=== PATIENT | female | born 1965 | race Two or more races ===

== ENCOUNTER 2016-07-03 18:33 | Observation (INO) | payer BC ==
[2016-07-03] MEDS ORDERED: Aspirin 81 MG Tab.Chew PO ONE (18:42)
[2016-07-03] MEDS ORDERED: Sodium Chloride 0.9% 10 ML Syringe FLUSH PRN (18:45)
[2016-07-03 19:07] LABS: CHLORIDE,CL 103 mmol/L (98-107); SODIUM,NA 138 mmol/L (136-145)
[2016-07-03] MEDS ORDERED: Nitroglycerin 0.4 MG Tab.SL SL ONE (19:10)
--- NOTE | 2016-07-03 19:11 | EDM.PDOC ---
ED HISTORY OF PRESENT ILLNESS - General Chief Complaint: Chest Pain Stated Complaint: cp Time Seen by Provider: 07/03/16 18:45 Source of Information: Reports: Patient History Limitations: Reports: No limitations - History of Present Illness INITIAL COMMENTS - FREE TEXT/NARRATIVE: Had chest pain yesterday for a few hours. Was severe at that time. Today it has been back, not quite as bad. Feels SOB, Not painful to breath. No Diaphoresis. Has some light-headedness. Symptom Onset Date: 07/02/16 Severity: severe (moderate at this time) Location, General: Reports: chest Quality: Reports: Pressure Improves with: Reports: Rest (specifically laying flat) Worsens with: Reports: Movement (specifically sitting up) Context, General: Reports: Other (normal ADL) Associated Symptoms (General): Reports: no other symptoms, chest pain, shortness of breath. Denies: cough, diaphoresis, fever/chills, malaise, nausea/ vomiting - Related Data Allergies/ADRs: Allergies Allergy/AdvReac Type Severity Reaction Status Date / Time No Known Allergies Allergy Verified 07/03/16 18:34 Home Meds: Home Meds . [No Known Home Meds] 07/03/16 [History] Social & Family History - Tobacco Use Smoking Status *Q: Current Every Day Smoker Years of Tobacco use: 30 Packs/Tins Daily: 0.5 ED ROS GENERAL - Review of Systems Review Of Systems: See Below Constitutional: Reports: no symptoms HEENT: Reports: No symptoms Respiratory: Reports: No Symptoms, Shortness of Breath (mild - feels like cant get a deep breath) Cardiovascular: Reports: Chest pain (06/17 currently) Endocrine: Reports: no symptoms GI/Abdominal: Reports: No symptoms : Reports: no symptoms Musculoskeletal: Reports: no symptoms Skin: Reports: no symptoms Neurological: Reports: No Symptoms Psychiatric: Reports: No symptoms Hematologic/Lymphatic: Reports: no symptoms Immunologic: Reports: no symptoms ED EXAM, GENERAL - Physical Exam Exam: See Below Exam Limited By: No limitations General Appearance: alert, WD/WN, no apparent distress Eye Exam: bilateral eye: EOMI, PERRL Ears: normal external exam, hearing grossly normal Nose: normal inspection, normal mucosa Throat/Mouth: Normal inspection, Normal oropharynx, Normal voice, No airway compromise Head: atraumatic, normocephalic Neck: normal inspection, supple, non-tender, full range of motion Respiratory/Chest: no respiratory distress, lungs clear, normal breath sounds, no accessory muscle use Cardiovascular: regular rate, rhythm, no edema, no murmur GI/Abdominal: soft, non tender, no abnormal bruit Extremities: normal inspection, normal range of motion, non-tender, normal capillary refill Neurological: alert, oriented, CN II-XII intact, normal cognition, no motor/ sensory deficits Psychiatric: normal affect, normal mood Skin Exam: Warm, Dry, Intact, Normal color, No rash Lymphatic: no adenopathy EKG INTERPRETATION EKG Date: 07/03/16 Rhythm: NSR [place]: normal P-wave: present QRS: normal ST-T: normal QT: normal Course - Vital Signs Last Recorded V/S: Last Vital Signs Temp 36.6 C 07/03/16 18:34 Pulse 64 07/03/16 21:27 Resp 15 07/03/16 21:24 BP 162/91 H 07/03/16 21:27 Pulse Ox 99 07/03/16 21:27 - Orders/Labs/Meds Orders: Active Orders 24 hr Category Date Time Status EKG Documentation Completion [RC] ASDIRECTED Care 07/03/16 18:42 Active EKG Documentation Completion [RC] ASDIRECTED Care 07/03/16 22:30 Active Oxygen Therapy Adult [Oxygen Therapy, ED] [RC] Care 07/03/16 18:44 Active ASDIRECTED Chest 1V Frontal [CR] Stat Exams 07/03/16 18:44 Taken Sodium Chloride 0.9% [Saline Flush] Med 07/03/16 18:45 Active 10 ml FLUSH ASDIRECTED PRN Saline Lock Insert [OM.PC] Routine Oth 07/03/16 18:45 Ordered Medication Orders Sodium Chloride (Saline Flush) 10 ml FLUSH ASDIRECTED PRN PRN Reason: Keep Vein Open Labs: Laboratory Tests 07/03/16 07/03/16 07/03/16 Range/Units 18:35 18:35 18:35 WBC 10.8 H (4.0-10.2) K/uL RBC 3.95 (3.77-5.09) M/uL Hgb 12.6 (11.7-15.5) g/dL Hct 37.8 (34.0-46.0) % MCV 95.7 (84.0-98.0) fL MCH 31.9 (28.2-33.3) pg MCHC 33.3 (31.7-36.0) g/dL RDW 13.3 (11.2-14.1) % Plt Count 261 (150-350) K/uL Neut % (Auto) 73.2 (45.0-80.0) % Lymph % (Auto) 19.2 (10.0-50.0) % [place] % (Auto) 5.6 (2.0-14.0) % Eos % (Auto) 1.5 (0.0-5.0) % Baso % (Auto) 0.5 (0.0-2.0) % Neut # (Auto) 7.92 H (1.40-7.00) K/uL Lymph # (Auto) 2.07 (0.50-3.50) K/uL [place] # (Auto) 0.60 (0.00-1.00) K/uL Eos # (Auto) 0.16 (0.00-0.50) K/uL Baso # (Auto) 0.05 (0.00-0.20) K/uL D-Dimer, Quantitative < 100 (0-400) ng/mL Sodium 138 (136-145) mmol/L Potassium 3.9 (3.5-5.1) mmol/L Chloride 103 (98-107) mmol/L Carbon Dioxide 24.2 (21.0-32.0) mmol/L BUN 17 (7-18) mg/dL Creatinine 0.69 (0.51-1.17) mg/dL Est Cr Clr Drug Dosing 92.33 mL/min Estimated GFR (MDRD) > 60 mL/min Glucose 126 H (74-106) mg/dL Calcium 8.6 (8.5-10.1) mg/dL Total Bilirubin 0.2 (0.2-1.0) mg/dL AST 17 (15-37) U/L ALT 31 (12-78) U/L Alkaline Phosphatase 112 (46-116) IU/L Troponin I 0.006 (0.000-0.056) ng/mL Total Protein 7.6 (6.4-8.2) g/dL Albumin 3.7 (3.4-5.0) g/dL 07/03/16 07/03/16 Range/Units 20:35 22:35 WBC (4.0-10.2) K/uL RBC (3.77-5.09) M/uL Hgb (11.7-15.5) g/dL Hct (34.0-46.0) % MCV (84.0-98.0) fL MCH (28.2-33.3) pg MCHC (31.7-36.0) g/dL RDW (11.2-14.1) % Plt Count (150-350) K/uL Neut % (Auto) (45.0-80.0) % Lymph % (Auto) (10.0-50.0) % [place] % (Auto) (2.0-14.0) % Eos % (Auto) (0.0-5.0) % Baso % (Auto) (0.0-2.0) % Neut # (Auto) (1.40-7.00) K/uL Lymph # (Auto) (0.50-3.50) K/uL [place] # (Auto) (0.00-1.00) K/uL Eos # (Auto) (0.00-0.50) K/uL Baso # (Auto) (0.00-0.20) K/uL D-Dimer, Quantitative (0-400) ng/mL Sodium (136-145) mmol/L Potassium (3.5-5.1) mmol/L Chloride (98-107) mmol/L Carbon Dioxide (21.0-32.0) mmol/L BUN (7-18) mg/dL Creatinine (0.51-1.17) mg/dL Est Cr Clr Drug Dosing mL/min Estimated GFR (MDRD) mL/min Glucose (74-106) mg/dL Calcium (8.5-10.1) mg/dL Total Bilirubin (0.2-1.0) mg/dL AST (15-37) U/L ALT (12-78) U/L Alkaline Phosphatase (46-116) IU/L Troponin I 0.010 0.009 (0.000-0.056) ng/mL Total Protein (6.4-8.2) g/dL Albumin (3.4-5.0) g/dL Meds: Medications Generic Name Dose Route Start Last Admin Trade Name Jennifer PRN Reason Stop Dose Admin Sodium Chloride 10 ml 07/03/16 18:45 Saline Flush FLUSH ASDIRECTED PRN Keep Vein Open Discontinued Medications Generic Name Dose Route Start Last Admin Trade Name Jennifer PRN Reason Stop Dose Admin Aspirin 324 mg 07/03/16 18:42 07/03/16 18:47 Aspirin PO 07/03/16 18:43 324 mg ONETIME ONE Administration Nitroglycerin 0.4 mg 07/03/16 19:10 07/03/16 19:13 Nitrostat SL 07/03/16 19:11 0.4 mg ONETIME ONE Administration - Re-Assessments/Exams Free Text/Narrative Re-Assessment/Exam: 07/03/16 23:29 pain resolved with nitrostat times 1 Departure - Departure Time of Disposition: 23:29 Disposition: Refer to Observation Condition: good Clinical Impression: Chest pain at rest - Problem List Review Problem List Initiated/Reviewed/Updated: No - My Orders Last 24 Hours: My Active Orders 07/03/16 18:42 EKG Documentation Completion [RC] ASDIRECTED 07/03/16 18:44 Oxygen Therapy Adult [Oxygen Therapy, ED] [RC] ASDIRECTED Chest 1V Frontal [CR] Stat 07/03/16 18:45 Sodium Chloride 0.9% [Saline Flush] 10 ml FLUSH ASDIRECTED PRN Saline Lock Insert [OM.PC] Routine 07/03/16 22:30 EKG Documentation Completion [RC] ASDIRECTED - Assessment/Plan Last 24 Hours: My Active Orders 07/03/16 18:42 EKG Documentation Completion [RC] ASDIRECTED 07/03/16 18:44 Oxygen Therapy Adult [Oxygen Therapy, ED] [RC] ASDIRECTED Chest 1V Frontal [CR] Stat 07/03/16 18:45 Sodium Chloride 0.9% [Saline Flush] 10 ml FLUSH ASDIRECTED PRN Saline Lock Insert [OM.PC] Routine 07/03/16 22:30 EKG Documentation Completion [RC] ASDIRECTED Assessment:: 1. Chest pain for 2 days. Resolved with nitro and Oxygen. EKG normal. Troponin normal at 6 hours Plan: Observation for R/O and to consider stress test.
[2016-07-03] MEDS ORDERED: Nitroglycerin 0.4 MG Tab.SL SL PRN (23:42)
[2016-07-04 08:20] VITALS: BP 141/93
[2016-07-04 09:39] LABS: CHLORIDE,CL 106 mmol/L (98-107); SODIUM,NA 142 mmol/L (136-145)
--- NOTE | 2016-07-04 11:00 | PCM.DCSUM1 ---
Discharge Summary - Hospital Course HPI Initial Comments: See emergency room note/admission H&P Brief History: See emergency room note/admission H&P - Discharge Data Discharge Date: 07/04/16 Discharge Disposition: Home, Self-Care 01 Condition: Good - Discharge Diagnosis/Problem(s) (1) Chest pain at rest SNOMED Code(s): 3825895 ICD Code: R07.9 - CHEST PAIN, UNSPECIFIED Status: Acute Priority: High Current Visit: Yes Onset Date: ~07/01/16 Problem Details: Negative workup for acute KS. Patient apparently had a negative normal exercise cardiac stress test about 10 years ago with no previous Cardiolite evaluation, etc. Cardiolite stress test in this facility ANDREW with close followup by her regular provider. Cardiology consultation depending on her clinical course. Activity restrictions, etc. discussed. Patient does not need a work excuse. She is adopted and does not know her family history (2) Peptic reflux disease SNOMED Code(s): 97662196 ICD Code: K21.9 - GASTRO-ESOPHAGEAL REFLUX DISEASE WITHOUT ESOPHAGITIS Status: Chronic Priority: High Current Visit: Yes Problem Details: Note current tobacco excuse and newly diagnosed H. pylori infection. No history of lower abdominal pain, melena, acute GI bleed, etc. Further GI workup including EGD, etc. depending on her clinical course (3) Hypertension SNOMED Code(s): 56604861 ICD Code: I10 - ESSENTIAL (PRIMARY) HYPERTENSION Status: Chronic Priority : High Current Visit: Yes Problem Details: Patient refused medical therapy in the past secondary to her fears of side effects. Various therapeutic options were discussed with patient agreeing to initiation of low-dose Cardizem CD. Continued close followup by her new local primary care provider, MACIEL MukherjeeC at [facility]. Qualifiers: Hypertension type: essential hypertension Qualified Code(s): I10 - Essential (primary) hypertension (4) H. pylori infection SNOMED Code(s): 4073955 ICD Code: A04.8 - OTHER SPECIFIED BACTERIAL INTESTINAL INFECTIONS Status: Acute Priority: High Current Visit: Yes Onset Date: 07/04/16 Problem Details: Initiate treatment at discharge (5) Hyperlipidemia SNOMED Code(s): 54796711 ICD Code: E78.5 - HYPERLIPIDEMIA, UNSPECIFIED Status: Chronic Priority: Medium Current Visit: Yes Problem Details: ADA, low-fat, low-cholesterol diet information provided at discharge Qualifiers: Hyperlipidemia type: mixed hyperlipidemia Qualified Code(s): E78.2 - Mixed hyperlipidemia (6) Hyperglycemia SNOMED Code(s): 48401799 ICD Code: R73.9 - HYPERGLYCEMIA, UNSPECIFIED Status: Acute Priority: Medium Current Visit: Yes Onset Date: 07/03/16 Problem Details: Borderline hyperglycemia with only minimally elevated glycosylated hemoglobin. Weight loss in moderation. Dietary changes as above (7) Mixed anxiety depressive disorder SNOMED Code(s): 831223829 ICD Code: F41.8 - OTHER SPECIFIED ANXIETY DISORDERS Status: Chronic Priority: Medium Current Visit: Yes Problem Details: Continue to observe closely by her new regular provider with consideration of medical therapy, counseling, etc. Patient does admit to increased stressors (8) Tobacco abuse counseling SNOMED Code(s): 509738201, 059822142, 990650176 ICD Code: Z71.6 - TOBACCO ABUSE COUNSELING Status: Chronic Priority: Medium Current Visit: Yes Problem Details: The patient's does not smoke. Tobacco cessation strongly encouraged with information provided at discharge (9) Complete right bundle branch block SNOMED Code(s): 488092538 ICD Code: I45.10 - UNSPECIFIED RIGHT BUNDLE-BRANCH BLOCK Status: Acute Priority: Medium Current Visit: Yes Onset Date: 07/04/16 Problem Details: Nonsymptomatic borderline complete right bundle branch block with cardiac workup as above (10) Hypocalcemia SNOMED Code(s): 1341040 ICD Code: E83.51 - HYPOCALCEMIA Status: Chronic Priority: Medium Current Visit: Yes Problem Details: Observe for now with high calcium diet (11) Leukocytosis SNOMED Code(s): 516131222, 850159652 ICD Code: D72.829 - ELEVATED WHITE BLOOD CELL COUNT, UNSPECIFIED Status: Acute Priority: Medium Current Visit: Yes Onset Date: 07/03/16 Problem Details: Resolved leukocytosis, which was likely secondary to stress reaction with no recent fever, bronchitic type symptoms, etc. Qualifiers: Leukocytosis type: bandemia Qualified Code(s): D72.825 - Bandemia - Patient Summary/Data Operative Procedure(s) Performed: None Complications: None Consults: None Labs Pending at D/C: None Recommended Follow-up Testing/Procedures: As per discharge instructions Planned Operative Procedure(s) after DC: None Hospital Course: The patient was admitted by [facility] physician with negative workup for acute KS. Note newly diagnosed H. pylori infection today with treatment to be initiated at hospital discharge as above. Some anxiety component secondary to current stressors with all the above factors to be watched closely by her new primary care provider as above. - Patient Instructions Diet: Heart Healthy Diet Diet, Other: 1500-calorie, ADA, high calcium Activity: No Strenuous Activities (50% maximum exercise restriction and fall precautions as discussed until your heart status has been determined and you have been cleared by your providers) Showering/Bathing: May Shower Notify Provider of: Increased Pain, Nausea and/or Vomiting Other/Special Instructions: 1. Followup in this facility on 07/07/16 for scheduled Cardiolite stress test. This facility will contact you at a later date with specific instructions and time. 2. Followup with your new regular provider, SONY Mukherjee at [facility], in 2 weeks for reevaluation and discussion of Cardiolite scan, etc. results. 3. Close followup of your newly treated H. pylori infection, hypertension, hyperlipidemia , hyperglycemia, emotion/stressors, etc. by your regular provider with consideration of further cardiology referral, GI work up, etc. depending on your clinical course. 4. Stop all tobacco use ANDREW as directed/per provided information and consider contacting Quit LIne, etc.. - Discharge Plan Prescriptions/Med Rec: Amoxicillin 1,000 mg PO BID #56 tab Bismuth Subsalicylate [Pepto-Bismol] 2 tab.chew PO QID #112 tab.chew Clarithromycin 500 mg PO BID #28 tablet Diltiazem [Cardizem CD] 120 mg PO DAILY #30 cap.cd Omeprazole Magnesium [Prilosec Otc] 20 mg PO BIDAC #30 tablet. metroNIDAZOLE [Flagyl] 500 mg PO Q8H #42 tablet Home Medications: Home Meds Amoxicillin 1,000 mg PO BID #56 tab 07/04/16 [Rx] Bismuth Subsalicylate [Pepto-Bismol] 2 tab.chew PO QID #112 tab.chew 07/04/16 [ Rx] Clarithromycin 500 mg PO BID #28 tablet 07/04/16 [Rx] Diltiazem [Cardizem CD] 120 mg PO DAILY #30 cap.cd 07/04/16 [Rx] Omeprazole Magnesium [Prilosec Otc] 20 mg PO BIDAC #30 tablet. 07/04/16 [Rx] metroNIDAZOLE [Flagyl] 500 mg PO Q8H #42 tablet 07/04/16 [Rx] Patient Handouts: Heartburn, Cwuj-rw-Zrqo, Helicobacter Pylori Antibodies Test , Nonspecific Chest Pain, Igfo-pi-Dwop, Hypertension, Znzy-mf-Lnod, Fat and Cholesterol Restricted Diet, Oail-yg-Gnhg, Type 2 Diabetes Mellitus, Adult, Hyperglycemia Forms: ED Department Discharge - Discharge Summary/Plan Comment DC Time >30 min.: Yes (Coordination of care) Discharge Summary/Plan Comment: As above. Extensive precautions were given to the patient and her , who are in agreement with the treatment plan. See Patient Instructions for further treatment and plan. - General Info Date of Service: 07/04/16 Admission Dx/Problem (Free Text: Chest pain Functional Status: Reports: pain controlled, tolerating diet, ambulating, urinating. Denies: new symptoms, incentive spirometry Numeric/FACES Score: 3 - Review of Systems General: Denies: Fever, Weakness, Fatigue, Malaise, Chills, Night Sweats, Appetite HEENT: Reports: no symptoms. Denies: dysphasia, eye pain, headaches, sinus congestion, sore throat, visual changes Pulmonary: Reports: no symptoms. Denies: shortness of breath, pleuritic chest pain, cough, hemoptysis, wheezing Cardiovascular: Reports: Chest Pain (3/10 retrosternal chest pressure/burning at 20:00 yesterday evening with quick resolution of one sublingual nitroglycerin tablets, similar episode at 06:30 a.m. this morning, however the patient did not mention these symptoms to the nurse at that time with spontaneous resolution after 15 minutes and no chest pain at this time) Gastrointestinal: Reports: No symptoms, Other (Normal bowel movement this morning). Denies: Abdominal pain, Constipation, Decreased appetite, Diarrhea, Difficulty swallowing, Flatus, Hematochezia, Melena, Nausea, Vomiting Genitourinary: Reports: no symptoms. Denies: dysuria, frequency, burning, pain , urgency, incontinence, hematuria, retention, flank pain Musculoskeletal: Reports: no symptoms. Denies: neck pain, shoulder pain, arm pain, hand pain, back pain, leg pain Skin: Reports: no symptoms. Denies: jaundice, diaphoresis Neurological: Reports: No Symptoms. Denies: Confusion, Dizziness, Numbness, Paresthesia, Tingling, Weakness Psychiatric: Reports: depression (Stable by history), anxiety (Stable by history ). Denies: confusion, agitation, cravings, hallucinations, suicidal ideation, homicidal ideation - Patient Data Vitals - Most Recent: Last Vital Signs Temp 36.4 C 07/04/16 08:00 Pulse 63 07/04/16 08:00 Resp 18 07/04/16 08:00 BP 141/93 H 07/04/16 08:00 Pulse Ox 98 07/04/16 08:00 Vital Signs - 24 hr 07/03/16 07/03/16 07/03/16 18:34 18:45 18:54 Temperature [ 36.6 C Oral] Pulse, 77 73 Peripheral [ Right] Respiratory 20 14 Rate Blood Pressure Blood Pressure 159/83 H 180/104 H [Right] O2 Sat by Pulse 100 99 Oximetry O2 Sat by Pulse 100 Oximetry [ Nasal Cannula] 07/03/16 07/03/16 07/03/16 18:57 19:01 19:13 Temperature [ Oral] Pulse, 69 71 Peripheral [ Right] Respiratory 15 Rate Blood Pressure 164/86 H Blood Pressure 170/87 H 170/87 H [Right] O2 Sat by Pulse 99 98 Oximetry O2 Sat by Pulse Oximetry [ Nasal Cannula] 07/03/16 07/03/16 07/03/16 19:18 19:21 19:37 Temperature [ Oral] Pulse, 77 68 69 Peripheral [ Right] Respiratory 13 14 16 Rate Blood Pressure Blood Pressure 137/80 141/81 H 146/88 H [Right] O2 Sat by Pulse 97 100 100 Oximetry O2 Sat by Pulse Oximetry [ Nasal Cannula] 07/03/16 07/03/16 07/03/16 20:00 20:15 20:30 Temperature [ Oral] Pulse, 66 66 65 Peripheral [ Right] Respiratory 16 17 15 Rate Blood Pressure Blood Pressure 142/87 H 125/76 143/71 H [Right] O2 Sat by Pulse 100 98 98 Oximetry O2 Sat by Pulse Oximetry [ Nasal Cannula] 07/03/16 07/03/16 07/03/16 20:45 21:00 21:07 Temperature [ Oral] Pulse, 67 66 64 Peripheral [ Right] Respiratory 16 Rate Blood Pressure Blood Pressure 155/85 H 147/84 H 162/91 H [Right] O2 Sat by Pulse 97 98 99 Oximetry O2 Sat by Pulse Oximetry [ Nasal Cannula] 07/03/16 07/03/16 07/03/16 21:22 21:37 21:52 Temperature [ Oral] Pulse, 66 65 64 Peripheral [ Right] Respiratory 16 15 16 Rate Blood Pressure Blood Pressure 156/84 H 190/90 H 162/88 H [Right] O2 Sat by Pulse 100 100 100 Oximetry O2 Sat by Pulse Oximetry [ Nasal Cannula] 07/03/16 07/03/16 07/03/16 22:07 22:22 22:37 Temperature [ Oral] Pulse, 62 67 65 Peripheral [ Right] Respiratory 15 16 15 Rate Blood Pressure Blood Pressure 149/83 H 158/82 H 144/90 H [Right] O2 Sat by Pulse 100 100 100 Oximetry O2 Sat by Pulse Oximetry [ Nasal Cannula] 07/03/16 07/03/16 07/04/16 22:52 23:15 04:00 Temperature [ 36.6 C Oral] Pulse, 64 66 61 Peripheral [ Right] Respiratory 16 16 14 Rate Blood Pressure Blood Pressure 152/86 H 150/93 H 139/94 H [Right] O2 Sat by Pulse 100 99 100 Oximetry O2 Sat by Pulse Oximetry [ Nasal Cannula] 07/04/16 08:00 Temperature [ 36.4 C Oral] Pulse, 63 Peripheral [ Right] Respiratory 18 Rate Blood Pressure Blood Pressure 141/93 H [Right] O2 Sat by Pulse 98 Oximetry O2 Sat by Pulse Oximetry [ Nasal Cannula] Weight - Most Recent: 68.039 kg I&O - Last 24 hours: Intake & Output 07/03/16 07/04/16 07/04/16 22:59 06:59 14:59 Intake Total 360 Balance 360 Imaging Impressions - Last 24 hrs: Chest x-ray, portable, report from 07/03/16 was normal headlight adjuster shows normal sinus rhythm with heart rate between the 60s and 80s with no ectopy or arrhythmia Lab Results - Last 24 hrs: Laboratory Results - last 24 hr 07/04/16 07/04/16 07/04/16 Range/Units 07:00 07:00 07:00 WBC 8.7 (4.0-10.2) K/uL RBC 3.83 (3.77-5.09) M/uL Hgb 12.2 (11.7-15.5) g/dL Hct 36.6 (34.0-46.0) % MCV 95.6 (84.0-98.0) fL MCH 31.9 (28.2-33.3) pg MCHC 33.3 (31.7-36.0) g/dL RDW 13.2 (11.2-14.1) % Plt Count 248 (150-350) K/uL Neut % (Auto) 66.8 (45.0-80.0) % Lymph % (Auto) 24.1 (10.0-50.0) % Moore % (Auto) 6.5 (2.0-14.0) % Eos % (Auto) 1.8 (0.0-5.0) % Baso % (Auto) 0.8 (0.0-2.0) % Neut # (Auto) 5.83 (1.40-7.00) K/uL Lymph # (Auto) 2.11 (0.50-3.50) K/uL Moore # (Auto) 0.57 (0.00-1.00) K/uL Eos # (Auto) 0.16 (0.00-0.50) K/uL Baso # (Auto) 0.07 (0.00-0.20) K/uL Sodium 142 (136-145) mmol/L Potassium 3.7 (3.5-5.1) mmol/L Chloride 106 (98-107) mmol/L Carbon Dioxide 24.9 (21.0-32.0) mmol/L BUN 12 (7-18) mg/dL Creatinine 0.52 (0.51-1.17) mg/dL Est Cr Clr Drug Dosing 123.18 mL/min Estimated GFR (MDRD) > 60 mL/min Glucose 104 (74-106) mg/dL Hemoglobin A1c (4.3-5.7) % Calcium 8.4 L (8.5-10.1) mg/dL Total Bilirubin 0.3 (0.2-1.0) mg/dL AST 16 (15-37) U/L ALT 27 (12-78) U/L Alkaline Phosphatase 83 (46-116) IU/L Creatine Kinase 45 (26-308) U/L Creatine Kinase Index 0.4 (0.0-2.5) % CK-MB (CK-2) 0.20 (0.00-3.60) ng/mL Troponin I 0.007 (0.000-0.056) ng/mL Kkk-P-Haukhtsfijf Pept 65 (0-125) pg/mL Total Protein 7.2 (6.4-8.2) g/dL Albumin 3.4 (3.4-5.0) g/dL Triglycerides 288 H (30-150) mg/dL Cholesterol 228 H (100-200) mg/dL LDL Cholesterol, Calc 113 H (0-100) mg/dL HDL Cholesterol 57 (40-60) mg/dL TSH, Ultra Sensitive 2.666 (0.358-3.740) mIU/mL H. pylori IgG Antibody (NEGATIVE) 07/04/16 07/04/16 Range/Units 07:00 07:00 WBC (4.0-10.2) K/uL RBC (3.77-5.09) M/uL Hgb (11.7-15.5) g/dL Hct (34.0-46.0) % MCV (84.0-98.0) fL MCH (28.2-33.3) pg MCHC (31.7-36.0) g/dL RDW (11.2-14.1) % Plt Count (150-350) K/uL Neut % (Auto) (45.0-80.0) % Lymph % (Auto) (10.0-50.0) % Moore % (Auto) (2.0-14.0) % Eos % (Auto) (0.0-5.0) % Baso % (Auto) (0.0-2.0) % Neut # (Auto) (1.40-7.00) K/uL Lymph # (Auto) (0.50-3.50) K/uL Moore # (Auto) (0.00-1.00) K/uL Eos # (Auto) (0.00-0.50) K/uL Baso # (Auto) (0.00-0.20) K/uL Sodium (136-145) mmol/L Potassium (3.5-5.1) mmol/L Chloride (98-107) mmol/L Carbon Dioxide (21.0-32.0) mmol/L BUN (7-18) mg/dL Creatinine (0.51-1.17) mg/dL Est Cr Clr Drug Dosing mL/min Estimated GFR (MDRD) mL/min Glucose (74-106) mg/dL Hemoglobin A1c 5.8 H (4.3-5.7) % Calcium (8.5-10.1) mg/dL Total Bilirubin (0.2-1.0) mg/dL AST (15-37) U/L ALT (12-78) U/L Alkaline Phosphatase (46-116) IU/L Creatine Kinase (26-308) U/L Creatine Kinase Index (0.0-2.5) % CK-MB (CK-2) (0.00-3.60) ng/mL Troponin I (0.000-0.056) ng/mL Gqo-E-Pirvrjmexzb Pept (0-125) pg/mL Total Protein (6.4-8.2) g/dL Albumin (3.4-5.0) g/dL Triglycerides (30-150) mg/dL Cholesterol (100-200) mg/dL LDL Cholesterol, Calc (0-100) mg/dL HDL Cholesterol (40-60) mg/dL TSH, Ultra Sensitive (0.358-3.740) mIU/mL H. pylori IgG Antibody Positive H (NEGATIVE) Laboratory Tests 07/03/16 07/03/16 07/03/16 Range/Units 18:35 18:35 18:35 WBC 10.8 H (4.0-10.2) K/uL RBC 3.95 (3.77-5.09) M/uL Hgb 12.6 (11.7-15.5) g/dL Hct 37.8 (34.0-46.0) % MCV 95.7 (84.0-98.0) fL MCH 31.9 (28.2-33.3) pg MCHC 33.3 (31.7-36.0) g/dL RDW 13.3 (11.2-14.1) % Plt Count 261 (150-350) K/uL Neut % (Auto) 73.2 (45.0-80.0) % Lymph % (Auto) 19.2 (10.0-50.0) % Moore % (Auto) 5.6 (2.0-14.0) % Eos % (Auto) 1.5 (0.0-5.0) % Baso % (Auto) 0.5 (0.0-2.0) % Neut # (Auto) 7.92 H (1.40-7.00) K/uL Lymph # (Auto) 2.07 (0.50-3.50) K/uL Moore # (Auto) 0.60 (0.00-1.00) K/uL Eos # (Auto) 0.16 (0.00-0.50) K/uL Baso # (Auto) 0.05 (0.00-0.20) K/uL D-Dimer, Quantitative < 100 (0-400) ng/mL Sodium 138 (136-145) mmol/L Potassium 3.9 (3.5-5.1) mmol/L Chloride 103 (98-107) mmol/L Carbon Dioxide 24.2 (21.0-32.0) mmol/L BUN 17 (7-18) mg/dL Creatinine 0.69 (0.51-1.17) mg/dL Est Cr Clr Drug Dosing 92.33 mL/min Estimated GFR (MDRD) > 60 mL/min Glucose 126 H (74-106) mg/dL Hemoglobin A1c (4.3-5.7) % Calcium 8.6 (8.5-10.1) mg/dL Total Bilirubin 0.2 (0.2-1.0) mg/dL AST 17 (15-37) U/L ALT 31 (12-78) U/L Alkaline Phosphatase 112 (46-116) IU/L Creatine Kinase (26-308) U/L Creatine Kinase Index (0.0-2.5) % CK-MB (CK-2) (0.00-3.60) ng/mL Troponin I 0.006 (0.000-0.056) ng/mL Iwl-X-Rgatykehnou Pept (0-125) pg/mL Total Protein 7.6 (6.4-8.2) g/dL Albumin 3.7 (3.4-5.0) g/dL Triglycerides (30-150) mg/dL Cholesterol (100-200) mg/dL LDL Cholesterol, Calc (0-100) mg/dL HDL Cholesterol (40-60) mg/dL TSH, Ultra Sensitive (0.358-3.740) mIU/mL H. pylori IgG Antibody (NEGATIVE) 07/03/16 07/03/16 07/04/16 Range/Units 20:35 22:35 07:00 WBC (4.0-10.2) K/uL RBC (3.77-5.09) M/uL Hgb (11.7-15.5) g/dL Hct (34.0-46.0) % MCV (84.0-98.0) fL MCH (28.2-33.3) pg MCHC (31.7-36.0) g/dL RDW (11.2-14.1) % Plt Count (150-350) K/uL Neut % (Auto) (45.0-80.0) % Lymph % (Auto) (10.0-50.0) % Moore % (Auto) (2.0-14.0) % Eos % (Auto) (0.0-5.0) % Baso % (Auto) (0.0-2.0) % Neut # (Auto) (1.40-7.00) K/uL Lymph # (Auto) (0.50-3.50) K/uL Moore # (Auto) (0.00-1.00) K/uL Eos # (Auto) (0.00-0.50) K/uL Baso # (Auto) (0.00-0.20) K/uL D-Dimer, Quantitative (0-400) ng/mL Sodium (136-145) mmol/L Potassium (3.5-5.1) mmol/L Chloride (98-107) mmol/L Carbon Dioxide (21.0-32.0) mmol/L BUN (7-18) mg/dL Creatinine (0.51-1.17) mg/dL Est Cr Clr Drug Dosing mL/min Estimated GFR (MDRD) mL/min Glucose (74-106) mg/dL Hemoglobin A1c (4.3-5.7) % Calcium (8.5-10.1) mg/dL Total Bilirubin (0.2-1.0) mg/dL AST (15-37) U/L ALT (12-78) U/L Alkaline Phosphatase (46-116) IU/L Creatine Kinase (26-308) U/L Creatine Kinase Index (0.0-2.5) % CK-MB (CK-2) (0.00-3.60) ng/mL Troponin I 0.010 0.009 0.007 (0.000-0.056) ng/mL Jnt-M-Hlqvjjfxqpb Pept (0-125) pg/mL Total Protein (6.4-8.2) g/dL Albumin (3.4-5.0) g/dL Triglycerides 288 H (30-150) mg/dL Cholesterol 228 H (100-200) mg/dL LDL Cholesterol, Calc 113 H (0-100) mg/dL HDL Cholesterol 57 (40-60) mg/dL TSH, Ultra Sensitive (0.358-3.740) mIU/mL H. pylori IgG Antibody (NEGATIVE) 07/04/16 07/04/16 07/04/16 Range/Units 07:00 07:00 07:00 WBC 8.7 (4.0-10.2) K/uL RBC 3.83 (3.77-5.09) M/uL Hgb 12.2 (11.7-15.5) g/dL Hct 36.6 (34.0-46.0) % MCV 95.6 (84.0-98.0) fL MCH 31.9 (28.2-33.3) pg MCHC 33.3 (31.7-36.0) g/dL RDW 13.2 (11.2-14.1) % Plt Count 248 (150-350) K/uL Neut % (Auto) 66.8 (45.0-80.0) % Lymph % (Auto) 24.1 (10.0-50.0) % Moore % (Auto) 6.5 (2.0-14.0) % Eos % (Auto) 1.8 (0.0-5.0) % Baso % (Auto) 0.8 (0.0-2.0) % Neut # (Auto) 5.83 (1.40-7.00) K/uL Lymph # (Auto) 2.11 (0.50-3.50) K/uL Moore # (Auto) 0.57 (0.00-1.00) K/uL Eos # (Auto) 0.16 (0.00-0.50) K/uL Baso # (Auto) 0.07 (0.00-0.20) K/uL D-Dimer, Quantitative (0-400) ng/mL Sodium 142 (136-145) mmol/L Potassium 3.7 (3.5-5.1) mmol/L Chloride 106 (98-107) mmol/L Carbon Dioxide 24.9 (21.0-32.0) mmol/L BUN 12 (7-18) mg/dL Creatinine 0.52 (0.51-1.17) mg/dL Est Cr Clr Drug Dosing 123.18 mL/min Estimated GFR (MDRD) > 60 mL/min Glucose 104 (74-106) mg/dL Hemoglobin A1c 5.8 H (4.3-5.7) % Calcium 8.4 L (8.5-10.1) mg/dL Total Bilirubin 0.3 (0.2-1.0) mg/dL AST 16 (15-37) U/L ALT 27 (12-78) U/L Alkaline Phosphatase 83 (46-116) IU/L Creatine Kinase 45 (26-308) U/L Creatine Kinase Index 0.4 (0.0-2.5) % CK-MB (CK-2) 0.20 (0.00-3.60) ng/mL Troponin I (0.000-0.056) ng/mL Vcm-G-Urdmrzorhws Pept 65 (0-125) pg/mL Total Protein 7.2 (6.4-8.2) g/dL Albumin 3.4 (3.4-5.0) g/dL Triglycerides (30-150) mg/dL Cholesterol (100-200) mg/dL LDL Cholesterol, Calc (0-100) mg/dL HDL Cholesterol (40-60) mg/dL TSH, Ultra Sensitive 2.666 (0.358-3.740) mIU/mL H. pylori IgG Antibody (NEGATIVE) 07/04/16 Range/Units 07:00 WBC (4.0-10.2) K/uL RBC (3.77-5.09) M/uL Hgb (11.7-15.5) g/dL Hct (34.0-46.0) % MCV (84.0-98.0) fL MCH (28.2-33.3) pg MCHC (31.7-36.0) g/dL RDW (11.2-14.1) % Plt Count (150-350) K/uL Neut % (Auto) (45.0-80.0) % Lymph % (Auto) (10.0-50.0) % Moore % (Auto) (2.0-14.0) % Eos % (Auto) (0.0-5.0) % Baso % (Auto) (0.0-2.0) % Neut # (Auto) (1.40-7.00) K/uL Lymph # (Auto) (0.50-3.50) K/uL Moore # (Auto) (0.00-1.00) K/uL Eos # (Auto) (0.00-0.50) K/uL Baso # (Auto) (0.00-0.20) K/uL D-Dimer, Quantitative (0-400) ng/mL Sodium (136-145) mmol/L Potassium (3.5-5.1) mmol/L Chloride (98-107) mmol/L Carbon Dioxide (21.0-32.0) mmol/L BUN (7-18) mg/dL Creatinine (0.51-1.17) mg/dL Est Cr Clr Drug Dosing mL/min Estimated GFR (MDRD) mL/min Glucose (74-106) mg/dL Hemoglobin A1c (4.3-5.7) % Calcium (8.5-10.1) mg/dL Total Bilirubin (0.2-1.0) mg/dL AST (15-37) U/L ALT (12-78) U/L Alkaline Phosphatase (46-116) IU/L Creatine Kinase (26-308) U/L Creatine Kinase Index (0.0-2.5) % CK-MB (CK-2) (0.00-3.60) ng/mL Troponin I (0.000-0.056) ng/mL Qqo-E-Tihbooiksil Pept (0-125) pg/mL Total Protein (6.4-8.2) g/dL Albumin (3.4-5.0) g/dL Triglycerides (30-150) mg/dL Cholesterol (100-200) mg/dL LDL Cholesterol, Calc (0-100) mg/dL HDL Cholesterol (40-60) mg/dL TSH, Ultra Sensitive (0.358-3.740) mIU/mL H. pylori IgG Antibody Positive H (NEGATIVE) BINDU Results - Last 24 hrs: None Med Orders - Current: Current Medications Aspirin (Aspirin) 81 mg PO BEDTIME MARCIA Sodium Chloride (Saline Flush) 10 ml FLUSH ASDIRECTED PRN PRN Reason: Keep Vein Open Discontinued Medications Aspirin (Aspirin) 324 mg PO ONETIME ONE Stop: 07/03/16 18:43 Last Admin: 07/03/16 18:47 Dose: 324 mg Nitroglycerin (Nitrostat) 0.4 mg SL ONETIME ONE Stop: 07/03/16 19:11 Last Admin: 07/03/16 19:13 Dose: 0.4 mg Nitroglycerin (Nitrostat) 0.4 mg SL Q5M PRN PRN Reason: Chest Pain Stop: 07/03/16 23:53 - Exam Quality Assessment: Reports: supplemental oxygen, DVT prophylaxis. Denies: urine catheter, skin breakdown, restraints General: Reports: alert, oriented, cooperative, no acute distress HEENT: Reports: Pupils equal, Pupils reactive, EOMI, Mucous membr. moist/pink Neck: Reports: supple, trachea midline, no JVD, no thyromegaly, +2 carotid pulse wo bruit. Denies: lymphadenopathy Lungs: Reports: Clear to auscultation, Normal respiratory effort. Denies: Rub Cardiovascular: Reports: Regular Rate, Regular Rhythm, Murmurs (1/6 NIKKO at the aortic and mitral valves). Denies: Gallops, Rubs Abdomen: Reports: bowel sounds present, soft, no tenderness, no distension, other (Obese). Denies: guarding, CVA tenderness (Female) Exam: Deferred Rectal (Female) Exam: Deferred Back Exam: Reports: normal inspection, full range of motion. Denies: CVA tenderness (L), CVA tenderness (R), muscle spasm Extremities: Reports: no edema, normal pulses, no tenderness/swelling, no calf tenderness Skin: Reports: warm, dry, intact Neurological: Reports: no new focal deficit, other (No clinical orthostasis) Psy/Mental Status: Reports: alert, anxious (Mild), depressed (Mild with excellent eye contact) *Q Meaningful Use (DIS) - VTE *Q VTE Criteria *Q: - Stroke *Q Stroke Criteria *Q: - AMI *Q AMI Criteria *Q:
[2016-07-04] MEDS ORDERED: Aspirin 81 MG Tab.Chew PO SCH (20:00)
== END 2016-07-04 12:51 | disposition home or self-care (01) ==
LOC: LL.ED 18:33 → LL.MS 23:17
PROVIDERS: ADMIT Emergency Medicine; ATTEND Family Medicine
DX: R07.9 Chest pain, unspecified (principal); F17.200 Nicotine dependence, unspecified, uncomplicated; K21.9 Gastro-esophageal reflux disease without esophagitis; I10 Essential (primary) hypertension; A04.8 Other specified bacterial intestinal infections; R73.9 Hyperglycemia, unspecified; E78.2 Mixed hyperlipidemia; F41.8 Other specified anxiety disorders; I45.10 Unspecified right bundle-branch block; E83.51 Hypocalcemia; D72.825 Bandemia
CPT/HCPCS: 36000; 36415; 71010; 80053; 80061; 82550; 82553; 83036; 83880; 84443; 84484; 85025; 85379; 86318; 93005; 99285; A9270; G0378

== ENCOUNTER 2017-12-08 15:18 | Emergency (ER) | payer BC ==
--- NOTE | 2017-12-08 15:45 | EDM.PDOC ---
ED HPI GENERAL MEDICAL PROBLEM - General Chief Complaint: General Stated Complaint: R KNEE PAIN Time Seen by Provider: 12/08/17 15:35 Source of Information: Reports: Patient, Old Records ([facility] EMR. No paper hospital chart available.), Significant Other History Limitations: Reports: No Limitations - History of Present Illness INITIAL COMMENTS - FREE TEXT/NARRATIVE: The patient was brought to the emergency room via private automobile by her significant other for evaluation of progressive two one half week history of chronic sharp pressure type 8/10 right knee pain with long history of chronic low back and knee pain in the past, including right knee surgery as below in about 2006. She denies any recent history of reinjury, instability, etc. with symptoms refractory to OTC Aleve and ibuprofen, which she is taking concurrently. Last dose of Aleve 3 tablets yesterday morning and ibuprofen 3 tablets yesterday evening. She is also using her knee sleeve at home with minimal improvement. Patient has not taken any medications for her discomfort today. Also note the patient has a long history of hypertension with medication noncompliance for at least one year. The patient denies any chest pain/pressure , heart flutter, dizziness, orthostasis, orthopnea, diaphoresis, paresthesias, recent decreased exercise tolerance, or any other anginal-type symptoms. No recent history of abdominal pain, heartburn, nausea, diarrhea, melena, gross hematochezia, or any food intolerance, including fatty foods, etc.. She has had some nonspecific dysuria during the last couple of days with no history of colic , gross hematuria, etc. The patient also denies any recent fever, cough, wheezing, dyspnea, etc.. No history of recent visual changes, diplopia, change in mental status, or other change in neurological status with stable chronic headaches. Onset: Gradual Duration: Week(s):, Constant, Getting Worse Location: Reports: Back (Stable chronic), Lower Extremity, Right. Denies: Head , Face, Neck, Chest, Abdomen, Pelvis, Upper Extremity, Left, Upper Extremity, Right, Lower Extremity, Left, Radiates to Quality: Reports: Pressure, Same as Previous Episode, Sharp Severity: Moderate Improves with: Reports: Rest Worsens with: Reports: Movement Context: Reports: Other (As above) Associated Symptoms: Reports: Headaches (Stable chronic). Denies: Confusion, Chest Pain, Cough, Diaphoresis, Fever/Chills, Loss of Appetite, Malaise, Nausea/ Vomiting, Rash, Seizure, Shortness of Breath, Syncope, Weakness Treatments TOBACCO EDUCATOR: Reports: NSAIDS Right Knee Pain Score (Numeric/FACES): 8 - Related Data Allergies Allergy/AdvReac Type Severity Reaction Status Date / Time No Known Allergies Allergy Verified 12/08/17 15:27 Home Meds: Home Meds amLODIPine Besylate [Norvasc] 5 mg PO DAILY #30 tablet 12/08/17 [Rx] Past Medical History HEENT History: Reports: None. Denies: Allergic Rhinitis, Cataract, Glaucoma, Hard of Hearing, Impaired Vision, Macular Degeneration, Otitis Media, Retinal Detachment Cardiovascular History: Reports: Arrhythmia, CAD, Heart Murmur, High Cholesterol , Hypertension, MA, Other (See Below). Denies: Afib, Aneurysm, Blood Clots/VTE/ DVT, Cardiomyopathy, Heart Failure, PVD, Syncope Other Cardiovascular History: Questionable borderline MA in about 2007 with brief medical therapy but no procedures performed and subsequent normal follow- up Cardiolite stress test as below. Aortic valve stenosis by clinical exam. Complete right bundle branch block. Respiratory History: Reports: None. Denies: Asthma, Bronchitis, Recurrent, COPD , Intubation, Difficult, Intubation, Previous, PE, Pneumothorax, Sleep Apnea, TB Gastrointestinal History: Reports: GERD, Helicobacter Pylori, Other (See Below) . Denies: Celiac Disease, Cholelithiasis, Chronic Constipation, Chronic Diarrhea, Fecal Incontinence, Gastritis, GI Bleed, Hepatitis, Hiatal Hernia, Inflammatory Bowel Disease, Irritable Bowel Syndrome, Jaundice, Pancreatitis, PUD Other Gastrointestinal History: Previously positive H. pylori antibody titer on 07/04/16 with no treatment to this point. Genitourinary History: Reports: None. Denies: Acute Renal Failure, Chronic Renal Insuffiency, Renal Calculus, Retention, Urinary, STD, Urinary Incontinence , UTI, Recurrent MOLDER TRIMMER History: Reports: , Spontaneous , Therapeutic . Denies: Dysfunctional Uterine Bleeding, Endometriosis, Fibroids : 7 Para: 4 LMP (Approximate): Other (See Below) Other MOLDER TRIMMER History: pre-menopausal since age 52 with LMP end of July 2017. Patient is 7 para 4 with 2 SABs during first trimester and another intentional in first trimester. Otherwise, Full term without complications during pregnancies or deliveries Musculoskeletal History: Reports: Arthritis, Back Pain, Chronic, Osteoarthritis. Denies: Amputation, Fracture, Gout, Neck Pain, Chronic, RA, SLE Neurological History: Reports: Concussion, Headaches, Chronic, Head Trauma, Other (See Below). Denies: Cerebral Aneurysms, CVA, Migraines, MS, Parkinson's , Seizure, TIA Other Neuro History: Head concussion at age 11. Psychiatric History: Reports: Anxiety, Depression. Denies: Abuse, Victim of, ADD, ADHD, Addiction, Psych Hospitalization(s), PTSD, Suicide Attempt, Suicidal Ideation Endocrine/Metabolic History: Reports: Diabetes, Type II, Obesity/BMI 30+, Other (See Below). Denies: Diabetes, Gestational, Diabetes, Type I, Diabetes Mellitus , Type 3c, Hypothyroidism, IDDM Other Endocrine/Metabolic History: Borderline hyperglycemia/prediabetes. Hematologic History: Reports: None. Denies: Anemia, Blood Transfusion(s), Iron Deficiency Immunologic History: Reports: None. Denies: AIDS, HIV, SLE Oncologic (Cancer) History: Reports: None. Denies: Basal Cell Carcinoma, Breast , Cervix, Hodgkin's Lymphoma, Leukemia, Lymphoma, Malignant Melanoma, Non- Hodgkin's Lymphoma, Ovarian, Squamous Cell Carcinoma, Uterine Dermatologic History: Reports: Other (See Below). Denies: Eczema, Psoriasis Other Dermatologic History: Cold-induced urticaria - Infectious Disease History Infectious Disease History: Reports: Chicken Pox, Helicobacter Pylori (As above) . Denies: C-Difficile, Measles, Meningitis, Mononucleosis, MRSA, Mumps, Pertussis (Whooping Cough), Rheumatic Fever, Rubella, Scarlet Fever, Shingles, VRE - Past Surgical History Head Surgeries/Procedures: Reports: None HEENT Surgical History: Reports: Oral Surgery, Other (See Below). Denies: Adenoidectomy, Cataract Surgery, Eye Surgery, Laser Surgery, LASIK, Myringotomy w Tube(s), Naso-Sinus Surgery, Tonsillectomy Other HEENT Surgeries/Procedures: [place] teeth extraction 4 at age 18. Cardiovascular Surgical History: Reports: None. Denies: Varicose Respiratory Surgical History: Reports: None. Denies: Thoracentesis GI Surgical History: Reports: None. Denies: Appendectomy, Cholecystectomy, Colonoscopy, EGD, Hernia, Abdominal, Hernia, Inguinal, Hernia Repair/Other Female Surgical History: Reports: Breast Biopsy, D&C, Dilitation & Evacuation , Other (See Below). Denies: Hysterectomy, Salpingo-Oophorectomy, Tubal Ligation Other Female Surgeries/Procedures: Right breast biopsy in about 2010 for benign disease. D&C 3 secondary to SAB as above. Endocrine Surgical History: Reports: None. Denies: Thyroid Biopsy Neurological Surgical History: Denies: C-Spine, Discectomy, Laminectomy, Lumbar Spine, Spinal Fusion, Thoracic Spine, Vertebroplasty Musculoskeletal Surgical History: Reports: Arthroscopic Knee, Other (See Below) . Denies: Carpal Tunnel, Ganglion Cyst, Joint Replacement, ORIF, Shoulder Surgery Other Musculoskeletal Surgeries/Procedures:: Right knee meniscal repair in 2006 Oncologic Surgical History: Reports: None Dermatological Surgical History: Reports: None - Past Imaging History Past Imaging History: Reports: Mammogram (Last in about 2014), Stress Testing ( Exercise stress test in about 2006 with negative Cardiolite stress test on .) Social & Family History - Family History Family Medical History: Unobtainable (She was adopted with no knowledge of her previous family history) - Tobacco Use Smoking Status *Q: Current Every Day Smoker Tobacco Use Within Last Twelve Months: Cigarettes Years of Tobacco use: 34 Packs/Tins Daily: 1 Packs/Tins Daily Comment: Started smoking at age 18. Used Tobacco, but Quit: Yes Smoking Cessation Information Provided To Patient: Yes Second Hand Smoke Exposure: No Second Hand Smoke Education Provided: No - Caffeine Use Caffeine Use: Reports: Coffee (3 cups per day). Denies: Energy Drinks, Soda, Tea - Alcohol Use Alcohol Use History: Yes Days Per Week of Alcohol Use: 2 Number of Drinks Per Day: 6 Number of Drinks Per Day Comment: Usually beer. No previous DWIs, problems with alcohol abuse, etc. Total Drinks Per Week: 12 Alcohol Use in Last Twelve Months: Yes Alcohol Use Frequency: Socially - Recreational Drug Use Recreational Drug Use: No Drug Use in Last 12 Months: No Recreational Drug Type: Denies: Amphetamines (Speed), Cocaine, Heroin, Inhalants (Glues, Solvents, Aerosols), LSD (Acid), Marijuana/Hashish, Methamphetamine, Morphine, Oxycodone - Living Situation & Occupation Living situation: Reports: ( in 1991 with 2 Children from this marriage with other children from previous relationships. in 2003), with Significant Other Occupation: Unemployed ED ROS GENERAL - Review of Systems Review Of Systems: ROS reveals no pertinent complaints other than HPI. ED EXAM, GENERAL - Physical Exam Exam: See Below Exam Limited By: No Limitations General Appearance: Alert, WD/WN, No Apparent Distress, Anxious (Mild) Head: Atraumatic, Normocephalic Neck: Normal Inspection, Supple, Non-Tender, Full Range of Motion, Carotid Bruit (Mild bilateral carotid bruits versus transmitted heart sounds). No: Lymphadenopathy (L), Lymphadenopathy (R), Thyromegaly Respiratory/Chest: No Respiratory Distress, Lungs Clear, Normal Breath Sounds, No Accessory Muscle Use, Chest Non-Tender. No: Pleural Rub, Retractions Cardiovascular: Normal Peripheral Pulses, Regular Rate, Rhythm, No Edema, No Gallop, No JVD, No Rub, Systolic Murmur (1/6 NIKKO of the aortic valve). No: Gallop/S3, Gallop/S4, Friction Rub Peripheral Pulses: 2+: Radial (L), Radial (R), Dorsalis Pedis (L), Dorsalis Pedis (R) GI/Abdominal: Normal Bowel Sounds, Soft, Non-Tender, No Organomegaly, No Distention, No Abnormal Bruit, No Mass, Other (obese). No: Guarding (Female) Exam: Deferred Rectal (Female) Exam: Deferred Back Exam: Normal Inspection, Full Range of Motion. No: CVA Tenderness (L), CVA Tenderness (R), Muscle Spasm Extremities: Normal Range of Motion, No Pedal Edema, Normal Capillary Refill, Joint Swelling (Minimal right knee effusion with mild to moderate localized palpation pain over the medial and lateral compartments with no instability, crepitation, etc. Negative pivot shift, anterior drawer and Sid's tests), Leg Pain (As above). No: Eder's Sign, Increased Warmth, Redness Neurological: Alert, Oriented, CN II-XII Intact, Normal Cognition, Normal Gait, No Motor/Sensory Deficits Psychiatric: Anxious (Mild), Depressed Mood (Borderline) Skin Exam: Warm, Dry, Intact, Normal Color, No Rash, Tattoo(s). No: Wound/ Incision Lymphatic: No Adenopathy Course - Vital Signs Last Recorded V/S: Last Vital Signs Temp 37.0 C 12/08/17 15:21 Pulse 58 L 12/08/17 16:58 Resp 16 12/08/17 16:58 BP 159/79 H 12/08/17 16:58 Pulse Ox 95 12/08/17 16:05 Vital Signs - 24 hr 12/08/17 12/08/17 12/08/17 15:21 15:27 15:34 Temperature [ 37.0 C Oral] Pulse, 75 66 Peripheral [ Right Pulse Oximetry] Respiratory 16 Rate Blood Pressure Blood Pressure 193/89 H 208/98 H 193/87 H [Right Upper Arm] O2 Sat by Pulse 99 Oximetry 12/08/17 12/08/17 12/08/17 15:50 15:57 16:05 Temperature [ Oral] Pulse, 67 63 Peripheral [ Right Pulse Oximetry] Respiratory 16 16 Rate Blood Pressure 200/96 H Blood Pressure 200/96 H 170/95 H [Right Upper Arm] O2 Sat by Pulse 96 95 Oximetry 12/08/17 12/08/17 12/08/17 16:25 16:27 16:32 Temperature [ Oral] Pulse, 62 Peripheral [ Right Pulse Oximetry] Respiratory Rate Blood Pressure 199/87 H 199/87 H Blood Pressure 199/87 H [Right Upper Arm] O2 Sat by Pulse Oximetry 12/08/17 12/08/17 16:40 16:58 Temperature [ Oral] Pulse, 62 58 L Peripheral [ Right Pulse Oximetry] Respiratory 16 16 Rate Blood Pressure Blood Pressure 154/101 H 159/79 H [Right Upper Arm] O2 Sat by Pulse Oximetry - Orders/Labs/Meds Orders: Active Orders 24 hr Category Date Time Status Cardiac Monitoring [RC] . DIRECTED Care 12/08/17 15:49 Active Peripheral IV Care [RC] . DIRECTED Care 12/08/17 15:50 Active CULTURE URINE [RM] Routine Lab 12/08/17 16:22 Received URINALYSIS W/MICROSCOPIC [UA W/MICROSCOPIC] [URIN] Lab 12/08/17 16:22 Ordered Routine Obtain Past Medical Record [OM.PC] Routine Oth 12/08/17 15:45 Active Peripheral IV Insertion Adult [OM.PC] Routine Oth 12/08/17 15:49 Ordered Labs: Laboratory Tests 12/08/17 12/08/17 12/08/17 Range/Units 15:50 15:50 16:22 WBC 7.9 (4.0-10.2) K/uL RBC 3.97 (3.77-5.09) M/uL Hgb 12.8 (11.7-15.5) g/dL Hct 38.4 (34.0-46.0) % MCV 96.7 (84.0-98.0) fL MCH 32.2 (28.2-33.3) pg MCHC 33.3 (31.7-36.0) g/dL RDW 13.8 (11.2-14.1) % Plt Count 228 (150-350) K/uL Neut % (Auto) 56.7 (45.0-80.0) % Lymph % (Auto) 31.7 (10.0-50.0) % [place] % (Auto) 7.7 (2.0-14.0) % Eos % (Auto) 2.9 (0.0-5.0) % Baso % (Auto) 1.0 (0.0-2.0) % Neut # (Auto) 4.50 (1.40-7.00) K/uL Lymph # (Auto) 2.52 (0.50-3.50) K/uL [place] # (Auto) 0.61 (0.00-1.00) K/uL Eos # (Auto) 0.23 (0.00-0.50) K/uL Baso # (Auto) 0.08 (0.00-0.20) K/uL Sodium 139 (136-145) mmol/L Potassium 4.1 (3.5-5.1) mmol/L Chloride 105 (98-107) mmol/L Carbon Dioxide 25.2 (21.0-32.0) mmol/L BUN 12 (7-18) mg/dL Creatinine 0.61 (0.51-1.17) mg/dL Est Cr Clr Drug Dosing 79.25 mL/min Estimated GFR (MDRD) > 60 mL/min Glucose 138 H (74-106) mg/dL Uric Acid 5.2 (2.6-7.2) mg/dL Calcium 9.1 (8.5-10.1) mg/dL Total Bilirubin 0.3 (0.2-1.0) mg/dL AST 44 H (15-37) U/L ALT 71 (12-78) U/L Alkaline Phosphatase 103 (46-116) IU/L Total Protein 7.7 (6.4-8.2) g/dL Albumin 3.7 (3.4-5.0) g/dL TSH, Ultra Sensitive 1.482 (0.358-3.740) mIU/mL Specimen Type Urincc Urine Color Yellow Urine Appearance Clear Urine pH 7.0 (5.0-9.0) Ur Specific [place] 1.020 (1.005-1.030) Urine Protein Negative (NEGATIVE) mg/dL Urine Glucose (UA) Negative (NEGATIVE) mg/dL Urine Ketones Negative (NEGATIVE) mg/dL Urine Occult Blood Trace-lysed H (NEGATIVE) Urine Nitrite Negative (NEGATIVE) Urine Bilirubin Negative (NEGATIVE) Urine Urobilinogen 0.2 (0.2-1.0) E.U./dL Ur Leukocyte Esterase Negative (NEGATIVE) Urine RBC 0-5 /HPF Urine WBC Not seen /HPF Ur Epithelial Cells Rare /LPF Urine Bacteria Rare (NONE TO FEW) /HPF Urine specimen set up for culture and sensitivity. Meds: Medications Discontinued Medications Generic Name Dose Route Start Last Admin Trade Name Freq PRN Reason Stop Dose Admin Amlodipine Besylate 5 mg 12/08/17 16:25 12/08/17 16:32 Norvasc PO 12/08/17 16:26 5 mg ONETIME ONE Administration Ketorolac Tromethamine 30 mg 12/08/17 16:34 12/08/17 16:37 Toradol IVPUSH 12/08/17 16:35 30 mg ONETIME ONE Administration Methylprednisolone Acetate 80 mg 12/08/17 16:34 12/08/17 16:46 Depo-Medrol IM 12/08/17 16:35 80 mg ONETIME ONE Administration Nitroglycerin 0.4 mg 12/08/17 15:46 12/08/17 15:57 Nitrostat SL 12/08/17 15:47 0.4 mg ONETIME ONE Administration Nitroglycerin 0.4 mg 12/08/17 16:25 12/08/17 16:27 Nitrostat SL 12/08/17 16:26 0.4 mg ONETIME ONE Administration Sodium Chloride 10 ml 12/08/17 15:49 12/08/17 15:58 Saline Flush FLUSH 10 ml ASDIRECTED PRN Administration Keep Vein Open - Radiology Interpretation Free Text/Narrative:: manager monitoring shows normal sinus rhythm in the 60s to 70s with no ectopy or arrhythmia. Departure - Departure Time of Disposition: 17:10 Disposition: Home, Self-Care 01 Condition: Good Clinical Impression: Osteoarthritis, Hypertension, Hyperglycemia, Peptic reflux disease, Mixed anxiety depressive disorder, Tobacco abuse counseling, H. pylori infection, Hyperlipidemia, Complete right bundle branch block, Elevated LFTs - Discharge Information *PRESCRIPTION DRUG MONITORING PROGRAM REVIEWED*: Not Applicable *COPY OF PRESCRIPTION DRUG MONITORING REPORT IN PATIENT LUCINA: Not Applicable Prescriptions: amLODIPine Besylate [Norvasc] 5 mg PO DAILY #30 tablet Instructions: Health Risks of Smoking, Heart-Healthy Eating Plan, [id number] , Hyperglycemia, [id number], Hypertension, [id number], Steps to Quit Smoking Referrals: PCP,None [Primary Care Provider] - Forms: ED Department Discharge Additional Instructions: 1. Followup with your regular provider in 10-14 days as directed. Bring these discharge instructions with you to that visit. 2. Tylenol 650 mg by mouth every 4 hours and/or OTC ibuprofen 2-3 tabs by mouth every 6 hours with food as directed./needed. Next dose of ibuprofen in 6 hours as needed secondary to medications given in the emergency room. Never use Aleve, ibuprofen, or other NSAIDs concurrently as discussed 3. BenGay or equivalent, heating pad as directed. Consider additional Martin wrap or knee sleeve as discussed 4. Activity as directed/tolerated 5. Stop all tobacco use ANDREW as directed/per provided information and consider contacting Quit LIne, etc.. 6. Immediately after this visit verify that your cellular telephone's voicemail has been activated and is empty. Also verify that your home telephone 's answering machine is operating properly and has space to receive messages. Note that it is sometimes necessary for us to be able to contact you at a later date to discuss your medical care. 7. Discuss at the above follow-up visit update of your preventative healthcare ANDREW including recommended mammogram, Pap smear, EGD and/or colonoscopy, glycosylated hemoglobin, lipid panel, etc. 8. Today's urine culture is pending with results in about 2-3 days. We will call you, if we need to change your therapy. 9. Blood Pressure and pulse check at [facility] in the next 3 days with record to be brought to follow up visit 10. Strict compliance with all medications, follow-up visits, diet, etc. as discussed 11. Consider stool specimen for H. pylori antigen secondary to previously untreated H. pylori antibody elevation, which should be discussed at the above follow-up. - Problem List & Annotations (1) Hypertension SNOMED Code(s): 04272847 Code(s): I10 - ESSENTIAL (PRIMARY) HYPERTENSION Status: Chronic Priority : High Annotation/Comment:: She has long been noncompliant with her Cardizem CD as above. Medication compliance strongly encouraged. Overall good results with treatment in the emergency room with sublingual nitroglycerin tablets given for blood pressure control and not for any kind of cardiac symptoms, which have not been present. Observe closely for bradycardia secondary to new Norvasc therapy. Qualifiers: Hypertension type: essential hypertension Qualified Code(s): I10 - Essential (primary) hypertension (2) Osteoarthritis SNOMED Code(s): 448033180 Code(s): M19.90 - UNSPECIFIED OSTEOARTHRITIS, UNSPECIFIED SITE Status: Acute Priority: High Annotation/Comment:: The patient initially wanted to have her knee drained of fluid, although no significant effusion noted today. No history of recent injury. IM Depo-Medrol and IV Toradol given in the emergency room. Patient was cautioned about using Aleve and ibuprofen concurrently with adjustment of her medications. Otherwise symptomatic relief as per discharge instructions. Orthopedic consultation depending on her clinical course. No x-rays were performed secondary to no recent acute injury, etc. Qualifiers: Osteoarthritis location: multiple joints Osteoarthritis type: primary Qualified Code(s): M15.0 - Primary generalized (osteo)arthritis (3) Complete right bundle branch block SNOMED Code(s): 277844666 Code(s): I45.10 - UNSPECIFIED RIGHT BUNDLE-BRANCH BLOCK Status: Chronic Priority: Medium Onset Date: 07/04/16 Annotation/Comment:: Nonsymptomatic borderline complete right bundle branch block history with questionable previous coronary artery disease and recent negative cardiac workup as above (4) Elevated LFTs SNOMED Code(s): 168603769, 380962685 Code(s): R94.5 - ABNORMAL RESULTS OF LIVER FUNCTION STUDIES Status: Acute Priority: Medium Onset Date: 12/08/17 Annotation/Comment:: Mild LFTs elevation likely secondary to fatty liver. Low-fat, low-cholesterol diet provided. Consider statin therapy depending on her weight loss and compliance with her diet, etc. (5) H. pylori infection SNOMED Code(s): 026995176 Code(s): A04.8 - OTHER SPECIFIED BACTERIAL INTESTINAL INFECTIONS Status: Chronic Priority: High Onset Date: 07/04/16 Annotation/Comment:: Patient apparently did not initiate treatment at discharge from this facility last year as advised. She will discuss this further with her regular provider at follow- up visit as per discharge instructions. (6) Hyperglycemia SNOMED Code(s): 02276920 Code(s): R73.9 - HYPERGLYCEMIA, UNSPECIFIED Status: Acute Priority: Medium Onset Date: 07/03/16 Annotation/Comment:: Borderline hyperglycemia with previously mildly elevated glycosylated hemoglobin. Weight loss in moderation advised. Dietary changes and information once again provided. (7) Hyperlipidemia SNOMED Code(s): 07757459 Code(s): E78.5 - HYPERLIPIDEMIA, UNSPECIFIED Status: Chronic Priority: Medium Annotation/Comment:: ADA, low-fat, low-cholesterol diet information provided at discharge as above with close follow-up by her regular provider as per discharge instructions. Qualifiers: Hyperlipidemia type: mixed hyperlipidemia Qualified Code(s): E78.2 - Mixed hyperlipidemia (8) Mixed anxiety depressive disorder SNOMED Code(s): 877884952 Code(s): F41.8 - OTHER SPECIFIED ANXIETY DISORDERS Status: Chronic Priority: Medium Annotation/Comment:: Continue to observe closely by her regular provider with consideration of medical therapy, counseling, etc. (9) Peptic reflux disease SNOMED Code(s): 973476775 Code(s): K21.9 - GASTRO-ESOPHAGEAL REFLUX DISEASE WITHOUT ESOPHAGITIS Status: Chronic Priority: High Annotation/Comment:: Stable by history with no current need for OTC antacids, etc. Note current tobacco abuse and previously diagnosed H. pylori infection. No history of recent abdominal pain, melena, acute GI bleed, etc. Further GI workup including EGD, etc. As per discharge instructions. (10) Tobacco abuse counseling SNOMED Code(s): 845574156, 421928314, 540084363 Code(s): Z71.6 - TOBACCO ABUSE COUNSELING Status: Chronic Priority: Medium Annotation/Comment:: Tobacco cessation once again strongly encouraged with information provided at discharge - Problem List Review Problem List Initiated/Reviewed/Updated: Yes - My Orders Last 24 Hours: My Active Orders 12/08/17 15:45 Obtain Past Medical Record [OM.PC] Routine 12/08/17 15:49 Cardiac Monitoring [RC] . DIRECTED Peripheral IV Insertion Adult [OM.PC] Routine 12/08/17 15:50 Peripheral IV Care [RC] . DIRECTED 12/08/17 16:22 CULTURE URINE [RM] Routine URINALYSIS W/MICROSCOPIC [UA W/MICROSCOPIC] [URIN] Routine - Assessment/Plan Last 24 Hours: My Active Orders 12/08/17 15:45 Obtain Past Medical Record [OM.PC] Routine 12/08/17 15:49 Cardiac Monitoring [RC] . DIRECTED Peripheral IV Insertion Adult [OM.PC] Routine 12/08/17 15:50 Peripheral IV Care [RC] . DIRECTED 12/08/17 16:22 CULTURE URINE [RM] Routine URINALYSIS W/MICROSCOPIC [UA W/MICROSCOPIC] [URIN] Routine Assessment:: As above Plan: As above. Extensive precautions were given to the patient and her significant other, who are in agreement with the treatment plan. See Patient Instructions for further treatment and plan.
[2017-12-08] MEDS ORDERED: Nitroglycerin 0.4 MG Tab.SL SL ONE ×2 (15:46→16:25)
[2017-12-08] MEDS ORDERED: Sodium Chloride 0.9% 10 ML Syringe FLUSH PRN (15:49)
[2017-12-08 16:23] LABS: CHLORIDE,CL 105 mmol/L (98-107); SODIUM,NA 139 mmol/L (136-145)
[2017-12-08] MEDS ORDERED: amLODIPine 5 MG Tab PO ONE (16:25)
[2017-12-08] MEDS ORDERED: Ketorolac 30 MG/ML SDV IVPUSH ONE (16:34)
[2017-12-08] MEDS ORDERED: methylPREDNISolone Acetate 80 MG/ML SDV IM ONE (16:34)
[2017-12-08 16:59] VITALS: BP 159/79
== END 2017-12-08 17:10 | disposition home or self-care (01) ==
LOC: LL.ED 15:18
DX: M25.461 Effusion, right knee (principal); M19.90 Unspecified osteoarthritis, unspecified site; I10 Essential (primary) hypertension; I45.10 Unspecified right bundle-branch block; R94.5 Abnormal results of liver function studies; A04.8 Other specified bacterial intestinal infections; R73.9 Hyperglycemia, unspecified; E78.5 Hyperlipidemia, unspecified; F41.8 Other specified anxiety disorders; K21.9 Gastro-esophageal reflux disease without esophagitis; F17.210 Nicotine dependence, cigarettes, uncomplicated; Z71.6 Tobacco abuse counseling; Z79.899 Other long term (current) drug therapy
CPT/HCPCS: 36415; 80053; 81001; 84443; 84550; 85025; 87086; 96372; 96374; 99284; A9270-GY; J1040; J1885; J7050

== ENCOUNTER 2018-01-08 15:20 | Emergency (ER) | payer BC ==
[2018-01-08] MEDS ORDERED: Sodium Chloride 0.9% 10 ML Syringe FLUSH PRN (15:32)
[2018-01-08] MEDS: Aspirin 81 MG Tab.Chew PO ONE (15:38)
--- NOTE | 2018-01-08 15:52 | EDM.PDOC ---
ED HPI GENERAL MEDICAL PROBLEM - General Chief Complaint: Chest Pain Stated Complaint: Chest Pain Time Seen by Provider: 01/08/18 15:25 Source of Information: Reports: Patient History Limitations: Reports: Respiratory Distress - History of Present Illness INITIAL COMMENTS - FREE TEXT/NARRATIVE: This is a 52-year-old states that for the last couple days she has had progressive chest pain with shortness of breath unable to finish her sentences to stop and take a breath pain in the epigastric area does not radiate into the neck or chest or shoulder - Related Data Allergies Allergy/AdvReac Type Severity Reaction Status Date / Time No Known Allergies Allergy Verified 01/08/18 15:23 Home Meds: Home Meds amLODIPine Besylate [Norvasc] 5 mg PO DAILY #30 tablet 12/08/17 [Rx] Albuterol [Proventil HFA] 2 puff INH Q4H PRN 30 Days #4 inhaler 01/08/18 [Rx] Fluticasone/Salmeterol [Advair 250-50 Diskus] 1 each IH BID 30 Days #1 disk.w.dev 01/08/18 [Rx] Past Medical History HEENT History: Reports: None. Denies: Allergic Rhinitis, Cataract, Glaucoma, Hard of Hearing, Impaired Vision, Macular Degeneration, Otitis Media, Retinal Detachment Cardiovascular History: Reports: Arrhythmia, CAD, Heart Murmur, High Cholesterol , Hypertension, GA, Other (See Below). Denies: Afib, Aneurysm, Blood Clots/VTE/ DVT, Cardiomyopathy, Heart Failure, PVD, Syncope Other Cardiovascular History: Questionable borderline GA in about 2007 with brief medical therapy but no procedures performed and subsequent normal follow- up Cardiolite stress test as below. Aortic valve stenosis by clinical exam. Complete right bundle branch block. Respiratory History: Reports: None. Denies: Asthma, Bronchitis, Recurrent, COPD , Intubation, Difficult, Intubation, Previous, PE, Pneumothorax, Sleep Apnea, TB Gastrointestinal History: Reports: GERD, Helicobacter Pylori, Other (See Below) . Denies: Celiac Disease, Cholelithiasis, Chronic Constipation, Chronic Diarrhea, Fecal Incontinence, Gastritis, GI Bleed, Hepatitis, Hiatal Hernia, Inflammatory Bowel Disease, Irritable Bowel Syndrome, Jaundice, Pancreatitis, PUD Other Gastrointestinal History: Previously positive H. pylori antibody titer on 07/04/16 with no treatment to this point. Genitourinary History: Reports: None. Denies: Acute Renal Failure, Chronic Renal Insuffiency, Renal Calculus, Retention, Urinary, STD, Urinary Incontinence , UTI, Recurrent PRICING COORDINATOR History: Reports: , Spontaneous , Therapeutic . Denies: Dysfunctional Uterine Bleeding, Endometriosis, Fibroids Other PRICING COORDINATOR History: pre-menopausal since age 52 with LMP end of July 2017. Patient is 7 para 4 with 2 SABs during first trimester and another intentional in first trimester. Otherwise, Full term without complications during pregnancies or deliveries Musculoskeletal History: Reports: Arthritis, Back Pain, Chronic, Osteoarthritis. Denies: Amputation, Fracture, Gout, Neck Pain, Chronic, RA, SLE Neurological History: Reports: Concussion, Headaches, Chronic, Head Trauma, Other (See Below). Denies: Cerebral Aneurysms, CVA, Migraines, MS, Parkinson's , Seizure, TIA Other Neuro History: Head concussion at age 11. Psychiatric History: Reports: Anxiety, Depression. Denies: Abuse, Victim of, ADD, ADHD, Addiction, Psych Hospitalization(s), PTSD, Suicide Attempt, Suicidal Ideation Endocrine/Metabolic History: Reports: Diabetes, Type II, Obesity/BMI 30+, Other (See Below). Denies: Diabetes, Gestational, Diabetes, Type I, Diabetes Mellitus , Type 3c, Hypothyroidism, IDDM Other Endocrine/Metabolic History: Borderline hyperglycemia/prediabetes. Hematologic History: Reports: None. Denies: Anemia, Blood Transfusion(s), Iron Deficiency Immunologic History: Reports: None. Denies: AIDS, HIV, SLE Oncologic (Cancer) History: Reports: None. Denies: Basal Cell Carcinoma, Breast , Cervix, Hodgkin's Lymphoma, Leukemia, Lymphoma, Malignant Melanoma, Non- Hodgkin's Lymphoma, Ovarian, Squamous Cell Carcinoma, Uterine Dermatologic History: Reports: Other (See Below). Denies: Eczema, Psoriasis Other Dermatologic History: Cold-induced urticaria - Infectious Disease History Infectious Disease History: Reports: Chicken Pox, Helicobacter Pylori (As above) . Denies: C-Difficile, Measles, Meningitis, Mononucleosis, MRSA, Mumps, Pertussis (Whooping Cough), Rheumatic Fever, Rubella, Scarlet Fever, Shingles, VRE - Past Surgical History Head Surgeries/Procedures: Reports: None HEENT Surgical History: Reports: Oral Surgery, Other (See Below). Denies: Adenoidectomy, Cataract Surgery, Eye Surgery, Laser Surgery, LASIK, Myringotomy w Tube(s), Naso-Sinus Surgery, Tonsillectomy Other HEENT Surgeries/Procedures: [place] teeth extraction 4 at age 18. Cardiovascular Surgical History: Reports: None. Denies: Varicose Respiratory Surgical History: Reports: None. Denies: Thoracentesis GI Surgical History: Reports: None. Denies: Appendectomy, Cholecystectomy, Colonoscopy, EGD, Hernia, Abdominal, Hernia, Inguinal, Hernia Repair/Other Female Surgical History: Reports: Breast Biopsy, D&C, Dilitation & Evacuation , Other (See Below). Denies: Hysterectomy, Salpingo-Oophorectomy, Tubal Ligation Other Female Surgeries/Procedures: Right breast biopsy in about 2010 for benign disease. D&C 3 secondary to SAB as above. Endocrine Surgical History: Reports: None. Denies: Thyroid Biopsy Musculoskeletal Surgical History: Reports: Arthroscopic Knee, Other (See Below) . Denies: Carpal Tunnel, Ganglion Cyst, Joint Replacement, ORIF, Shoulder Surgery Other Musculoskeletal Surgeries/Procedures:: Right knee meniscal repair in 2006 Oncologic Surgical History: Reports: None Dermatological Surgical History: Reports: None - Past Imaging History Past Imaging History: Reports: Mammogram (Last in about 2014), Stress Testing ( Exercise stress test in about 2006 with negative Cardiolite stress test on .) Social & Family History - Family History Family Medical History: Unobtainable (She was adopted with no knowledge of her previous family history) - Caffeine Use Caffeine Use: Reports: Coffee (3 cups per day). Denies: Energy Drinks, Soda, Tea - Living Situation & Occupation Living situation: Reports: ( in 1991 with 2 Children from this marriage with other children from previous relationships. in 2003), with Significant Other Occupation: Unemployed ED ROS GENERAL - Review of Systems Review Of Systems: See Below ED EXAM, GENERAL - Physical Exam Exam: See Below Course - Vital Signs Last Recorded V/S: Last Vital Signs Temp 98.4 F 01/08/18 15:20 Pulse 70 01/08/18 15:50 Resp 16 01/08/18 15:50 BP 151/82 H 01/08/18 15:50 Pulse Ox 96 01/08/18 15:50 - Orders/Labs/Meds Orders: Active Orders 24 hr Category Date Time Status EKG Documentation Completion [RC] ASDIRECTED Care 01/08/18 15:24 Active EKG Documentation Completion [RC] ASDIRECTED Care 01/08/18 15:34 Active Pulse Oximetry [RC] PRN Care 01/08/18 15:33 Active RT Aerosol Therapy [RC] ASDIRECTED Care 01/08/18 15:53 Active Chest 2V [CR] Stat Exams 01/08/18 15:32 Taken Sodium Chloride 0.9% [Saline Flush] Med 01/08/18 15:32 Active 10 ml FLUSH ASDIRECTED PRN Saline Lock Insert [OM.PC] Stat Oth 01/08/18 15:33 Ordered EKG 12 Lead [EK] Stat Ther 01/08/18 15:32 Ordered Medication Orders Sodium Chloride (Saline Flush) 10 ml FLUSH ASDIRECTED PRN PRN Reason: Keep Vein Open Labs: Laboratory Tests 01/08/18 01/08/18 01/08/18 Range/Units 15:35 15:35 15:35 WBC 8.7 (4.0-10.2) K/uL RBC 4.20 (3.77-5.09) M/uL Hgb 13.5 (11.7-15.5) g/dL Hct 39.6 (34.0-46.0) % MCV 94.3 (84.0-98.0) fL MCH 32.1 (28.2-33.3) pg MCHC 34.1 (31.7-36.0) g/dL RDW 13.0 (11.2-14.1) % Plt Count 235 (150-350) K/uL Neut % (Auto) 60.1 (45.0-80.0) % Lymph % (Auto) 32.0 (10.0-50.0) % Sunflower % (Auto) 5.3 (2.0-14.0) % Eos % (Auto) 1.7 (0.0-5.0) % Baso % (Auto) 0.9 (0.0-2.0) % Neut # (Auto) 5.22 (1.40-7.00) K/uL Lymph # (Auto) 2.78 (0.50-3.50) K/uL Sunflower # (Auto) 0.46 (0.00-1.00) K/uL Eos # (Auto) 0.15 (0.00-0.50) K/uL Baso # (Auto) 0.08 (0.00-0.20) K/uL D-Dimer, Quantitative < 100 (0-400) ng/mL Sodium 141 (136-145) mmol/L Potassium 3.8 (3.5-5.1) mmol/L Chloride 103 (98-107) mmol/L Carbon Dioxide 26.3 (21.0-32.0) mmol/L BUN 26 H (7-18) mg/dL Creatinine 0.95 (0.51-1.17) mg/dL Est Cr Clr Drug Dosing 50.89 mL/min Estimated GFR (MDRD) > 60 mL/min Glucose 163 H (74-106) mg/dL Calcium 9.2 (8.5-10.1) mg/dL Troponin I 0.002 (0.000-0.056) ng/mL NT-Pro-B Natriuret Pep (0-125) pg/mL 01/08/18 Range/Units 15:35 WBC (4.0-10.2) K/uL RBC (3.77-5.09) M/uL Hgb (11.7-15.5) g/dL Hct (34.0-46.0) % MCV (84.0-98.0) fL MCH (28.2-33.3) pg MCHC (31.7-36.0) g/dL RDW (11.2-14.1) % Plt Count (150-350) K/uL Neut % (Auto) (45.0-80.0) % Lymph % (Auto) (10.0-50.0) % Sunflower % (Auto) (2.0-14.0) % Eos % (Auto) (0.0-5.0) % Baso % (Auto) (0.0-2.0) % Neut # (Auto) (1.40-7.00) K/uL Lymph # (Auto) (0.50-3.50) K/uL Sunflower # (Auto) (0.00-1.00) K/uL Eos # (Auto) (0.00-0.50) K/uL Baso # (Auto) (0.00-0.20) K/uL D-Dimer, Quantitative (0-400) ng/mL Sodium (136-145) mmol/L Potassium (3.5-5.1) mmol/L Chloride (98-107) mmol/L Carbon Dioxide (21.0-32.0) mmol/L BUN (7-18) mg/dL Creatinine (0.51-1.17) mg/dL Est Cr Clr Drug Dosing mL/min Estimated GFR (MDRD) mL/min Glucose (74-106) mg/dL Calcium (8.5-10.1) mg/dL Troponin I (0.000-0.056) ng/mL NT-Pro-B Natriuret Pep 24 (0-125) pg/mL Meds: Medications Generic Name Dose Route Start Last Admin Trade Name Freq PRN Reason Stop Dose Admin Sodium Chloride 10 ml 01/08/18 15:32 Saline Flush FLUSH ASDIRECTED PRN Keep Vein Open Discontinued Medications Generic Name Dose Route Start Last Admin Trade Name Freq PRN Reason Stop Dose Admin Albuterol/Ipratropium Confirm 01/08/18 15:55 01/08/18 15:58 Duoneb 3.0-0.5 Mg/3 Ml Administered 01/08/18 15:56 Not Given Dose 3 ml .ROUTE .STK-MED ONE Albuterol/Ipratropium 3 ml 01/08/18 15:53 01/08/18 15:58 Duoneb 3.0-0.5 Mg/3 Ml NEB 01/08/18 15:54 3 ml ONETIME ONE Administration Aspirin 324 mg 01/08/18 15:32 01/08/18 15:38 Aspirin PO 01/08/18 15:33 324 mg ONETIME ONE Administration Departure - Departure Time of Disposition: 16:48 Disposition: Home, Self-Care 01 Clinical Impression: COPD (chronic obstructive pulmonary disease) Qualifiers: COPD type: COPD with acute exacerbation Qualified Code(s): J44.1 - Chronic obstructive pulmonary disease with (acute) exacerbation Prescriptions: Albuterol [Proventil HFA] 2 puff INH Q4H PRN 30 Days #4 inhaler PRN Reason: sob Fluticasone/Salmeterol [Advair 250-50 Diskus] 1 each IH BID 30 Days #1 disk.w.dev Instructions: Steps to Quit Smoking, [id number], Chronic Obstructive Pulmonary Disease Referrals: PCP,None [Ordering Only Provider] - Forms: ED Department Discharge Care Plan Goals: Patient will be sent home on Advair and albuterol as a rescue she is to take the Advair twice a day and the Abita role every 4 hours when necessary for shortness of breath she's feeling much better a little jittery she will follow- up with Loree in the clinic and we will go ahead and do pulmonary function tests. - My Orders Last 24 Hours: My Active Orders 01/08/18 15:24 EKG Documentation Completion [RC] ASDIRECTED 01/08/18 15:32 Chest 2V [CR] Stat Sodium Chloride 0.9% [Saline Flush] 10 ml FLUSH ASDIRECTED PRN EKG 12 Lead [EK] Stat 01/08/18 15:33 Pulse Oximetry [RC] PRN Saline Lock Insert [OM.PC] Stat 01/08/18 15:34 EKG Documentation Completion [RC] ASDIRECTED 01/08/18 15:53 RT Aerosol Therapy [RC] ASDIRECTED - Assessment/Plan Last 24 Hours: My Active Orders 01/08/18 15:24 EKG Documentation Completion [RC] ASDIRECTED 01/08/18 15:32 Chest 2V [CR] Stat Sodium Chloride 0.9% [Saline Flush] 10 ml FLUSH ASDIRECTED PRN EKG 12 Lead [EK] Stat 01/08/18 15:33 Pulse Oximetry [RC] PRN Saline Lock Insert [OM.PC] Stat 01/08/18 15:34 EKG Documentation Completion [RC] ASDIRECTED 01/08/18 15:53 RT Aerosol Therapy [RC] ASDIRECTED
[2018-01-08] MEDS: Albuterol/Ipratropium 3.0-0.5 MG/3 ML Neb Soln NEB ONE (15:58)
[2018-01-08] MEDS: Albuterol/Ipratropium 3.0-0.5 MG/3 ML Neb Soln ONE (15:58)
[2018-01-08 16:13] LABS: CHLORIDE,CL 103 mmol/L (98-107); SODIUM,NA 141 mmol/L (136-145)
[2018-01-08 17:09] VITALS: BP 131/87
== END 2018-01-08 17:00 | disposition home or self-care (01) ==
LOC: LL.ED 15:20
DX: J44.1 Chronic obstructive pulmonary disease with (acute) exacerbation (principal); I10 Essential (primary) hypertension; I25.2 Old myocardial infarction; E11.9 Type 2 diabetes mellitus without complications; E78.00 Pure hypercholesterolemia, unspecified; Z79.899 Other long term (current) drug therapy
CPT/HCPCS: 36000; 36415; 71046; 80048; 83880; 84484; 85025; 85379; 93005; 94640; 99285; A9270; J7620-GY

== ENCOUNTER 2018-09-22 14:44 | Emergency (ER) | payer BC ==
[2018-09-22] MEDS ORDERED: Metoprolol Tartrate 25 MG Tab PO ONE (15:30)
--- NOTE | 2018-09-22 15:38 | EDM.PDOC ---
ED HPI GENERAL MEDICAL PROBLEM - General Chief Complaint: Lower Extremity Injury/Pain Stated Complaint: post op right knee pain Time Seen by Provider: 09/22/18 15:04 Source of Information: Reports: Patient History Limitations: Reports: No Limitations - History of Present Illness INITIAL COMMENTS - FREE TEXT/NARRATIVE: Patient had right total knee performed in July. Presents today to have incision line checked. Over the past few weeks the ends of the subcutaneous sutures have popped through the skin on both the proximal and distal ends of the suture line. Patient was seen for this by (who performed the surgery) as well as the [place] [facility] and was told not to worry and that there were no signs of infection. Over the past few days she has noticed increased redness around the distal suture poking through, no purulent drainage however. No fevers/streaking of the redness. Knee however has become more tender to flex and extend. Is only able to flex it if she applies pressure laterally and medially to lower knee using both hands. Tender to walk. Has crutches at home that she can use. Is out of Toradol. Unable to give us a current med list as all of her meds were packed up in a box randomly who was attempting to assist the patient move out of her old home. She has not been able to identify which box they are in and her knee pain has been limiting her activity. She was not surprised to see her BP during intake and said it was normal for her. Right Knee Pain Score (Numeric/FACES): 10 - Related Data Allergies Allergy/AdvReac Type Severity Reaction Status Date / Time No Known Allergies Allergy Verified 09/22/18 14:46 Home Meds: Home Meds Aspirin/Caffeine [Jaylen Back-Body 500-32.5 mg] 2 tab PO ASDIRECTED 09/22/18 [ History] Sulfamethoxazole/Trimethoprim [Septra DS] 1 tab PO Q12H #14 tab 09/22/18 [Rx] Past Medical History HEENT History: Reports: None Cardiovascular History: Reports: Arrhythmia, CAD, Heart Murmur, High Cholesterol , Hypertension, ND, Other (See Below) Other Cardiovascular History: Questionable borderline ND in about 2007 with brief medical therapy but no procedures performed and subsequent normal follow- up Cardiolite stress test as below. Aortic valve stenosis by clinical exam. Complete right bundle branch block. Respiratory History: Reports: None Gastrointestinal History: Reports: GERD, Helicobacter Pylori, Other (See Below) Other Gastrointestinal History: Previously positive H. pylori antibody titer on 07/04/16 with no treatment to this point. Genitourinary History: Reports: None EXCELSIOR PICKER History: Reports: , Spontaneous , Therapeutic Other EXCELSIOR PICKER History: pre-menopausal since age 52 with LMP end of July 2017. Patient is 7 para 4 with 2 SABs during first trimester and another intentional in first trimester. Otherwise, Full term without complications during pregnancies or deliveries Musculoskeletal History: Reports: Arthritis, Back Pain, Chronic, Osteoarthritis Neurological History: Reports: Concussion, Headaches, Chronic, Head Trauma, Other (See Below) Other Neuro History: Head concussion at age 11. Psychiatric History: Reports: Anxiety, Depression Endocrine/Metabolic History: Reports: Diabetes, Type II, Obesity/BMI 30+, Other (See Below) Other Endocrine/Metabolic History: Borderline hyperglycemia/prediabetes. Hematologic History: Reports: None Immunologic History: Reports: None Oncologic (Cancer) History: Reports: None Dermatologic History: Reports: Other (See Below) Other Dermatologic History: Cold-induced urticaria - Infectious Disease History Infectious Disease History: Reports: Chicken Pox, Helicobacter Pylori - Past Surgical History Head Surgeries/Procedures: Reports: None HEENT Surgical History: Reports: Oral Surgery, Other (See Below) Other HEENT Surgeries/Procedures: [place] teeth extraction 4 at age 18. Cardiovascular Surgical History: Reports: None Respiratory Surgical History: Reports: None GI Surgical History: Reports: None Female Surgical History: Reports: Breast Biopsy, D&C, Dilitation & Evacuation , Other (See Below) Other Female Surgeries/Procedures: Right breast biopsy in about 2010 for benign disease. D&C 3 secondary to SAB as above. Endocrine Surgical History: Reports: None Musculoskeletal Surgical History: Reports: Arthroscopic Knee, Other (See Below) Other Musculoskeletal Surgeries/Procedures:: Right knee meniscal repair in 2006 , Right total knee replacement in July, Oncologic Surgical History: Reports: None Dermatological Surgical History: Reports: None - Past Imaging History Past Imaging History: Reports: Mammogram (Last in about 2014), Stress Testing ( Exercise stress test in about 2006 with negative Cardiolite stress test on .) Social & Family History - Family History Family Medical History: Unobtainable - Tobacco Use Smoking Status *Q: Current Every Day Smoker Years of Tobacco use: 30 Packs/Tins Daily: 0.1 - Caffeine Use Caffeine Use: Reports: Coffee - Recreational Drug Use Recreational Drug Use: No - Living Situation & Occupation Living situation: Reports: ( in 1991 with 2 Children from this marriage with other children from previous relationships. in 2003), with Significant Other Occupation: Unemployed Review of Systems - Review of Systems Review Of Systems: ROS reveals no pertinent complaints other than HPI. ED EXAM, GENERAL - Physical Exam Exam: See Below Exam Limited By: No Limitations General Appearance: Alert, WD/WN, Anxious Eye Exam: Bilateral Eye: EOMI, PERRL Nose: No: Nasal Deformity, Nasal Swelling, Nasal Drainage Throat/Mouth: Normal Lips, Normal Voice, No Airway Compromise Head: Atraumatic, Normocephalic Neck: Supple, Non-Tender Respiratory/Chest: No Respiratory Distress Extremities: Other (Incision line from recent right knee replacement examined. Small piece of suture noted to be poking through the skin proximally. No drainage around suture. No swelling of knee noted. Middle of suture line unremarkable. Endpoint of distal suture line shows small 1cm area of mild maceration, no obvous suture noted. No purulence. Mild increase in warmth around this area. Discomfort with touch along entire suture line. Patient not able to tolerate passive ROM attempts. Right leg unremarkable otherwise proximally and distally to knee. ) Neurological: Alert, Oriented, Normal Cognition Psychiatric: Anxious Skin Exam: Warm, Dry Course - Vital Signs Last Recorded V/S: Last Vital Signs Temp 37.2 C 09/22/18 14:57 Pulse 87 09/22/18 14:57 Resp 17 09/22/18 14:57 BP 176/89 H 09/22/18 14:57 Pulse Ox 95 09/22/18 14:57 - Orders/Labs/Meds Orders: Active Orders 24 hr Category Date Time Status CBC WITH AUTO DIFF [HEME] Stat Lab 09/22/18 15:24 Ordered COMPREHENSIVE METABOLIC PN,CMP [CHEM] Stat Lab 09/22/18 15:24 Ordered - Re-Assessments/Exams Free Text/Narrative Re-Assessment/Exam: 09/22/18 16:18 Overall unremarkable CBC/Chem. WBC normal. Uncertain if changes noted around suture line secondary to suture reaction ( patient had severe reaction to madelaine after surgery in July), or may reflect early infection. If there is an early infection, cannot say if it is confined to the skin or if it threatens the joint. Call placed to . Reviewed patient's complaint and exam. He recommended starting the patient on Septra DS and was OK with us giving her a bottle of 10 T #3. He wished us to emphasize to her that she should continue with ROM exercises and "pump the foot" frequently to keep blood moving in the leg. He will see her at 11am Monday, two days from now, in his office at [place]. She is to follow up there at the ER if she sees any worsening, such as purulent drainage or fevers. Bactroban applied to the areas where the sutures came through the skin. Nursing trimmed the proximal suture so that it was flush with skin. Bandaged. Septra given from ER stock, and Rx for additional Septra sent to pharmacy. Patient is agreeable with the above plan. She may need to change the time she follows up with however. Precautions reviewed. Patient given single Metoprol in ER. Encouraged to dig through boxes today/ tomorrow to find her meds. If she cant, she was advised to talk to her pharmacy Monday and see if she could get refills of her medication. Departure - Departure Time of Disposition: 16:05 Disposition: Home, Self-Care 01 Condition: Good Clinical Impression: Protruding suture present on examination Suture reaction Qualifiers: Encounter type: initial encounter Qualified Code(s): T81.89XA - Other complications of procedures, not elsewhere classified, initial encounter S/P total knee arthroplasty Qualifiers: Laterality: right Qualified Code(s): Z96.651 - Presence of right artificial knee joint - Discharge Information *PRESCRIPTION DRUG MONITORING PROGRAM REVIEWED*: Yes *COPY OF PRESCRIPTION DRUG MONITORING REPORT IN PATIENT LUCINA: Yes Prescriptions: Sulfamethoxazole/Trimethoprim [Septra DS] 1 tab PO Q12H #14 tab Referrals: Loree De Luna, [employer]PER[employer] [Primary Care Provider] - Additional Instructions: Start the antibiotics you were given in the ER, one tablet twice a day (every 12 hours). Apply the Bactroban ointment to the are where the sutures were coming out twice a day. group worker the rest of the antibiotics Monday from the pharmacy. FIND YOUR MEDS at home! If you cannot find them, have your pharmacy refill them. Dr Lewis can see you Monday at 11am. If you need to reschedule call [place] and have them page so that he can return your call and change plans accordingly. Remember to work on range of motion exercises and pump your foot frequently to keep blood moving in leg. If you see worsening redness, have fevers develop--go to [place] ER where can come in to evaluate you. [facility] - My Orders Last 24 Hours: My Active Orders 09/22/18 15:24 CBC WITH AUTO DIFF [HEME] Stat COMPREHENSIVE METABOLIC PN,CMP [CHEM] Stat - Assessment/Plan Last 24 Hours: My Active Orders 09/22/18 15:24 CBC WITH AUTO DIFF [HEME] Stat COMPREHENSIVE METABOLIC PN,CMP [CHEM] Stat
[2018-09-22] MEDS ORDERED: Mupirocin Oint 22 GM Tube TOP ONE (15:56)
[2018-09-22 16:07] LABS: CHLORIDE,CL 103 mmol/L (98-107); SODIUM,NA 141 mmol/L (136-145)
[2018-09-22 16:59] VITALS: BP 196/90
== END 2018-09-22 16:40 | disposition home or self-care (01) ==
LOC: LL.ED 14:44
DX: T81.89XA Other complications of procedures, not elsewhere classified, initial encounter (principal); E78.00 Pure hypercholesterolemia, unspecified; I10 Essential (primary) hypertension; I25.2 Old myocardial infarction; K21.9 Gastro-esophageal reflux disease without esophagitis; F41.9 Anxiety disorder, unspecified; F32.9 Major depressive disorder, single episode, unspecified; E11.9 Type 2 diabetes mellitus without complications; E66.9 Obesity, unspecified; Z96.651 Presence of right artificial knee joint; Z79.82 Long term (current) use of aspirin; F17.210 Nicotine dependence, cigarettes, uncomplicated; Z68.33 Body mass index [BMI] 33.0-33.9, adult
CPT/HCPCS: 36415; 80053; 85025; 99283; A9270

== ENCOUNTER 2019-08-22 08:39 | Day surgery (SDC) | payer BC ==
[~2019-08-22 08:39] MED LIST: Propofol 200 MG/20 ML SDV ONE; Sodium Chloride 0.9% 10 ML Syringe FLUSH PRN
[2019-08-22] MEDS: Lactated Ringers 1,000 ML IV SCH (09:30)
--- NOTE | 2019-08-22 09:39 | PCM.HPR ---
H & P Addendum review - H & P Addendum Review Date of Original H & P: 08/01/19 Date Reviewed: 08/22/19 Time Reviewed: 09:38 Patient was Examined: No Changes (Has not seen blood for the past 4 days)
[2019-08-22] MEDS ORDERED: Propofol 200 MG/20 ML SDV ONE (09:43)
--- NOTE | 2019-08-22 10:10 | PCM.OPNOTE ---
- General Post-Op/Procedure Note Date of Surgery/Procedure: 08/22/19 Operative Procedure(s): Colonoscopy Findings: Sig tics, small polyp Pre Op Diagnosis: Hematochezia Post-Op Diagnosis: Same Anesthesia Technique: MAC Primary Surgeon: Terrance Hart Pathology: Sig polyp at 20 cm Complications: None Condition: Good
[2019-08-22 12:57] VITALS: BP 137/84; PULSE 72
--- NOTE | 2019-08-22 13:37 | OR ---
Date of Procedure: 08/22/2019 PREOPERATIVE DIAGNOSIS: Hematochezia. POSTOPERATIVE DIAGNOSES: 1. Sigmoid diverticulosis. 2. A small sigmoid colon polyp at 20 cm. PROCEDURE: Colonoscopy with polypectomy. ANESTHESIA: MAC. PROCEDURE IN DETAIL: The patient was brought to the procedure room where she was placed on the left side and IV sedation administered. Digital rectal exam was performed, which was normal. Colonoscope was inserted and advanced to the level of the cecum without difficulty. Cecal position was confirmed by identifying the appendiceal lumen and the ileocecal valve. Prep was good and surfaces were well visualized. Upon withdrawing the scope, the ascending, transverse, and descending colon were normal in appearance. Sigmoid colon had multiple large diverticula present. At 20 cm, there was a 5-mm sessile polyp, removed with a cautery snare and sent for pathology review. Rectum was normal and retroflexion was normal. Hemorrhoids were mildly enlarged without any evidence of recent bleeding. Air was removed and the scope withdrawn. Patient tolerated the procedure well and returned to recovery in stable condition. I did not find any obvious source of bleeding at this time. I suspect it was from her diverticulosis. I would recommend a repeat colonoscopy again in 5 years if the polyp is adenomatous, otherwise she could wait 10 years until her next colonoscopy. WILI ZUNIGA MD /[id number]
== END 2019-08-22 11:32 | disposition home or self-care (01) ==
LOC: LL.SDS 08:39
PROVIDERS: ATTEND Surgery
DX: D12.5 Benign neoplasm of sigmoid colon (principal); K57.31 Diverticulosis of large intestine without perforation or abscess with bleeding; K64.9 Unspecified hemorrhoids; I10 Essential (primary) hypertension; E11.9 Type 2 diabetes mellitus without complications; E66.9 Obesity, unspecified; K21.9 Gastro-esophageal reflux disease without esophagitis; F17.290 Nicotine dependence, other tobacco product, uncomplicated; F17.220 Nicotine dependence, chewing tobacco, uncomplicated; F17.210 Nicotine dependence, cigarettes, uncomplicated; Z71.6 Tobacco abuse counseling; Z68.31 Body mass index [BMI] 31.0-31.9, adult
CPT/HCPCS: J2704; J7120

== ENCOUNTER 2019-10-28 17:58 | Emergency (ER) | payer BC ==
[2019-10-28 18:11] VITALS: PULSE 65
--- NOTE | 2019-10-28 18:46 | EDM.PDOC ---
ED HPI GENERAL MEDICAL PROBLEM - General Chief Complaint: Lower Extremity Injury/Pain Stated Complaint: R knee injury, L hand injury Time Seen by Provider: 10/28/19 18:15 Source of Information: Reports: Patient History Limitations: Reports: No Limitations - History of Present Illness INITIAL COMMENTS - FREE TEXT/NARRATIVE: Pt tripped and fell Has pain in left hand and right knee Pt has previous partial arthroplasty of right knee Has brusing and swelling of right hand Onset: Sudden Duration: Minutes: Location: Reports: Upper Extremity, Left, Lower Extremity, Right Quality: Reports: Throbbing Severity: Moderate Improves with: Reports: Immobilization Worsens with: Reports: Movement Context: Reports: Trauma Right Knee Pain Score (Numeric/FACES): 8 Left Hand Pain Score (Numeric/FACES): 8 - Related Data Allergies Allergy/AdvReac Type Severity Reaction Status Date / Time No Known Allergies Allergy Verified 10/28/19 18:05 Home Meds: Home Meds Aspirin/Acetaminophen/Caffeine [Excedrin Migraine Caplet] 1 each PO ASDIRECTED PRN 08/22/19 [History] Calcium Carbonate [Tums] 2 tab PO ASDIRECTED PRN 08/22/19 [History] Metoprolol Tartrate 50 mg PO BID 08/22/19 [History] DULoxetine [Cymbalta] 1 cap PO BID 10/28/19 [History] amLODIPine [Norvasc] 1 tab PO DAILY 10/28/19 [History] Past Medical History HEENT History: Reports: None Cardiovascular History: Reports: Hypertension Other Cardiovascular History: Questionable borderline PA in about 2007 with brief medical therapy but no procedures performed and subsequent normal follow- up Cardiolite stress test as below. Aortic valve stenosis by clinical exam. Complete right bundle branch block. Respiratory History: Reports: None Gastrointestinal History: Reports: GERD, Helicobacter Pylori, Other (See Below) Other Gastrointestinal History: Previously positive H. pylori antibody titer on 07/04/16 with no treatment to this point. 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 Patient is 7 para 4 with 2 SABs during first trimester and another intentional in first trimester. Otherwise, Full term without complications during pregnancies or deliveries Musculoskeletal History: Reports: Arthritis, Back Pain, Chronic, Osteoarthritis Neurological History: Reports: Concussion, Headaches, Chronic, Head Trauma, Other (See Below) Other Neuro History: Head concussion at age 11. Psychiatric History: Reports: Anxiety, Depression Endocrine/Metabolic History: Reports: Diabetes, Type II, Obesity/BMI 30+, Other (See Below) Other Endocrine/Metabolic History: Borderline hyperglycemia/prediabetes. Hematologic History: Reports: None Immunologic History: Reports: None Oncologic (Cancer) History: Reports: None Dermatologic History: Reports: Other (See Below) Other Dermatologic History: Cold-induced urticaria - Infectious Disease History Infectious Disease History: Reports: Chicken Pox, Helicobacter Pylori - Past Surgical History Head Surgeries/Procedures: Reports: None HEENT Surgical History: Reports: Oral Surgery, Other (See Below) Other HEENT Surgeries/Procedures: Phillips teeth extraction 4 at age 18. Respiratory Surgical History: Reports: None GI Surgical History: Reports: None Female Surgical History: Reports: Breast Biopsy, D&C, Dilitation & Evacuation, Other (See Below) Other Female Surgeries/Procedures: Right breast biopsy in about 2010 for benign disease. D&C 3 secondary to SAB as above. Endocrine Surgical History: Reports: None Musculoskeletal Surgical History: Reports: Joint Replacement, Other (See Below) Other Musculoskeletal Surgeries/Procedures:: Right TKA Oncologic Surgical History: Reports: None Dermatological Surgical History: Reports: None - Past Imaging History Past Imaging History: Reports: Mammogram (Last in about 2014), Stress Testing (Exercise stress test in about 2006 with negative Cardiolite stress test on 07/14/16.) Social & Family History - Family History Family Medical History: Unobtainable - Tobacco Use Smoking Status *Q: Current Every Day Smoker Years of Tobacco use: 20 Packs/Tins Daily: 0.4 Used Tobacco, but Quit: No Second Hand Smoke Exposure: Yes - Caffeine Use Caffeine Use: Reports: Coffee - Alcohol Use Days Per Week of Alcohol Use: 2 Number of Drinks Per Day: 6 Total Drinks Per Week: 12 - Recreational Drug Use Recreational Drug Use: No - Living Situation & Occupation Living situation: Reports: ( in 1991 with 2 Children from this marriage with other children from previous relationships. in 2003), with Significant Other Occupation: Unemployed Review of Systems - Review of Systems Review Of Systems: See Below Musculoskeletal: Reports: Other (Left hand pain and right knee pain) ED EXAM, GENERAL - Physical Exam Exam: See Below Exam Limited By: No Limitations General Appearance: Mild Distress Extremities: Other (Left hand with mild swelling and bruising Pain with palpation and movement Right knee with abrasion Tender with palpation) Course - Vital Signs Last Recorded V/S: Last Vital Signs Temp 96.8 F L 10/28/19 18:09 Pulse 65 10/28/19 18:09 Resp 16 10/28/19 18:09 BP 173/90 H 10/28/19 18:09 Pulse Ox 98 10/28/19 18:09 - Orders/Labs/Meds Orders: Active Orders 24 hr Category Date Time Status Hand Comp Min 3V Lt [CR] Stat Exams 10/28/19 18:24 Ordered Knee 1V or 2V Rt [CR] Stat Exams 10/28/19 18:24 Ordered - Re-Assessments/Exams Free Text/Narrative Re-Assessment/Exam: 10/28/19 18:43 Xray: No obvious fracture Await xray report Velcro splint placed on left hand by nurse 10/28/19 18:44 Rx Tylenol #3 1 pill every 6 hours for pain #10 Departure - Departure Time of Disposition: 18:45 Disposition: Home, Self-Care 01 Clinical Impression: Contusion of hand, left Qualifiers: Encounter type: initial encounter Qualified Code(s): S60.222A - Contusion of left hand, initial encounter Contusion of right knee Qualifiers: Encounter type: initial encounter Qualified Code(s): S80.01XA - Contusion of right knee, initial encounter - Discharge Information *PRESCRIPTION DRUG MONITORING PROGRAM REVIEWED*: Not Applicable *COPY OF PRESCRIPTION DRUG MONITORING REPORT IN PATIENT LUCINA: Not Applicable Instructions: Contusion, [id number] Referrals: PCP,None [Primary Care Provider] - Forms: ED Department Discharge Additional Instructions: Follow up in clinic Tylenol #3 One pill every six hours for pain Sepsis Event Note (ED) - Evaluation Sepsis Screening Result: No Definite Risk - Focused Exam Vital Signs: Vital Signs Temp Pulse Resp BP Pulse Ox 10/28/19 18:09 96.8 F L 65 16 173/90 H 98 - My Orders Last 24 Hours: My Active Orders 10/28/19 18:24 Hand Comp Min 3V Lt [CR] Stat Knee 1V or 2V Rt [CR] Stat - Assessment/Plan Last 24 Hours: My Active Orders 10/28/19 18:24 Hand Comp Min 3V Lt [CR] Stat Knee 1V or 2V Rt [CR] Stat
[2019-10-28 18:49] VITALS: BP 188/80
== END 2019-10-28 18:53 | disposition home or self-care (01) ==
LOC: LL.ED 17:58
DX: S60.222A Contusion of left hand, initial encounter (principal); S80.01XA Contusion of right knee, initial encounter; I10 Essential (primary) hypertension; F41.9 Anxiety disorder, unspecified; F32.9 Major depressive disorder, single episode, unspecified; E11.9 Type 2 diabetes mellitus without complications; M19.90 Unspecified osteoarthritis, unspecified site; E66.9 Obesity, unspecified; F17.210 Nicotine dependence, cigarettes, uncomplicated; Z79.82 Long term (current) use of aspirin; Z79.899 Other long term (current) drug therapy; W01.0XXA Fall on same level from slipping, tripping and stumbling without subsequent striking against object, initial encounter
CPT/HCPCS: 73130-LT; 73560-RT; 99283

== ENCOUNTER 2020-08-29 19:24 | Emergency (ER) | payer BC ==
[2020-08-29 19:28] VITALS: BP 138/78; PULSE 102
[2020-08-29] MEDS ORDERED: Sodium Chloride 0.9% 10 ML Syringe FLUSH PRN (19:54)
[2020-08-29 20:13] LABS: CHLORIDE,CL 104 mmol/L (98-107); SODIUM,NA 140 mmol/L (136-145)
--- NOTE | 2020-08-29 20:14 | EDM.PDOC ---
ED HPI GENERAL MEDICAL PROBLEM - General Chief Complaint: Gastrointestinal Problem Stated Complaint: BLOOD IN STOOL Time Seen by Provider: 08/29/20 19:31 Source of Information: Reports: Patient History Limitations: Reports: No Limitations - History of Present Illness INITIAL COMMENTS - FREE TEXT/NARRATIVE: Pt. presents to ER with complaints of rectal bleeding. Pt. states that she has rectal bleeding frequently. She underwent a colonoscopy on 08/22/2019 for hematochezia. There was a small polyp that was removed. She had evidence of diverticulosis and internal hemorrhoids. No other cause of her hematochezia could be identified. Pt. states that she has had intermittent hematochezia since for some time. She states that she had a normal BM earlier today, but tonight she states that she passed toshia blood and several clots in the toilet. Pt. denies any abdominal pain. No lightheadedness. She denies any shortness of breath. Pt. states that she has a history of anemia. Denies any history of recent trauma. Pt. does complain of some low back pain. She states that she always has this, but thinks it is worse today. She denies any chest pain. No lightheadedness. Denies any weakness. No weight loss or gain. Denies any increased peripheral edema. No diaphoresis. Onset: Today Location: Reports: Abdomen Treatments ROD POINTER: Reports: NSAIDS Lower Back Pain Score (Numeric/FACES): 8 - Related Data Allergies Allergy/AdvReac Type Severity Reaction Status Date / Time No Known Allergies Allergy Verified 08/29/20 19:25 Home Meds: Home Meds amLODIPine [Norvasc] 1 tab PO DAILY 10/28/19 [History] Past Medical History HEENT History: Reports: None Cardiovascular History: Reports: Hypertension Other Cardiovascular History: Questionable borderline [place] in about 2007 with brief medical therapy but no procedures performed and subsequent normal follow- up Cardiolite stress test as below. Aortic valve stenosis by clinical exam. Complete right bundle branch block. Respiratory History: Reports: None Gastrointestinal History: Reports: GERD, Helicobacter Pylori, Other (See Below) Other Gastrointestinal History: Previously positive H. pylori antibody titer on 07/04/16 with no treatment to this point. 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 Patient is 7 para 4 with 2 SABs during first trimester and another intentional in first trimester. Otherwise, Full term without complications during pregnancies or deliveries Musculoskeletal History: Reports: Arthritis, Back Pain, Chronic, Osteoarthritis Neurological History: Reports: Concussion, Headaches, Chronic, Head Trauma, Other (See Below) Other Neuro History: Head concussion at age 11. Psychiatric History: Reports: Anxiety, Depression Endocrine/Metabolic History: Reports: Diabetes, Type II, Obesity/BMI 30+, Other (See Below) Other Endocrine/Metabolic History: Borderline hyperglycemia/prediabetes. Hematologic History: Reports: None Immunologic History: Reports: None Oncologic (Cancer) History: Reports: None Dermatologic History: Reports: Other (See Below) Other Dermatologic History: Cold-induced urticaria - Infectious Disease History Infectious Disease History: Reports: Chicken Pox, Helicobacter Pylori - Past Surgical History Head Surgeries/Procedures: Reports: None HEENT Surgical History: Reports: Oral Surgery, Other (See Below) Other HEENT Surgeries/Procedures: Lloyd teeth extraction 4 at age 18. Cardiovascular Surgical History: Reports: None Respiratory Surgical History: Reports: None GI Surgical History: Reports: Colonoscopy Female Surgical History: Reports: Breast Biopsy, D&C, Dilitation & Evacuation, Other (See Below) Other Female Surgeries/Procedures: Right breast biopsy in about 2010 for benign disease. D&C 3 secondary to SAB as above. Endocrine Surgical History: Reports: None Musculoskeletal Surgical History: Reports: Joint Replacement, Other (See Below) Other Musculoskeletal Surgeries/Procedures:: Right TKA Oncologic Surgical History: Reports: None Dermatological Surgical History: Reports: None - Past Imaging History Past Imaging History: Reports: Mammogram (Last in about 2014), Stress Testing (Exercise stress test in about 2006 with negative Cardiolite stress test on 07/14/16.) Social & Family History - Family History Family Medical History: Unobtainable - Tobacco Use Tobacco Use Status *Q: Current Every Day Tobacco User Years of Tobacco use: 20 Packs/Tins Daily: 1 - Caffeine Use Caffeine Use: Reports: Coffee - Recreational Drug Use Recreational Drug Use: No - Living Situation & Occupation Living situation: Reports: ( in 1991 with 2 Children from this marriage with other children from previous relationships. in 2003), with Significant Other Occupation: Unemployed ED ROS GENERAL - Review of Systems Review Of Systems: See Below Constitutional: Reports: No Symptoms. Denies: Fever, Chills, Malaise, Weakness, Fatigue, Night Sweats, Diaphoresis, Weight Loss HEENT: Reports: No Symptoms Respiratory: Reports: No Symptoms Cardiovascular: Reports: No Symptoms Endocrine: Reports: No Symptoms GI/Abdominal: Reports: No Symptoms, Bloody Stool, Hematochezia, Other (See HPI). Denies: Black Stool, Diarrhea, Distension, Hematemesis, Melena, Nausea : Reports: No Symptoms Musculoskeletal: Reports: No Symptoms Skin: Reports: No Symptoms Neurological: Reports: No Symptoms Psychiatric: Reports: No Symptoms Hematologic/Lymphatic: Reports: Anemia ED EXAM, GENERAL - Physical Exam Exam: See Below Exam Limited By: No Limitations General Appearance: Alert, WD/WN, No Apparent Distress Respiratory/Chest: No Respiratory Distress, Lungs Clear, Normal Breath Sounds, No Accessory Muscle Use, Chest Non-Tender Cardiovascular: Normal Peripheral Pulses, Regular Rate, Rhythm, No Edema, No JVD Peripheral Pulses: 4+: Radial (L) GI/Abdominal: Normal Bowel Sounds, Soft, Non-Tender, No Organomegaly, No Dis tention, No Mass (Female) Exam: Deferred Rectal (Female) Exam: Deferred Back Exam: Normal Inspection, Full Range of Motion Neurological: Alert, Oriented, CN II-XII Intact, Normal Cognition, Normal Gait, Normal Reflexes, No Motor/Sensory Deficits Psychiatric: Normal Affect, Normal Mood Skin Exam: Warm, Dry, Intact, Normal Color, No Rash Lymphatic: No Adenopathy Course - Vital Signs Last Recorded V/S: Last Vital Signs Temp 36.6 C 08/29/20 19:27 Pulse 102 H 08/29/20 19:27 Resp 12 08/29/20 19:27 BP 138/78 08/29/20 19:27 Pulse Ox 100 08/29/20 19:27 - Orders/Labs/Meds Orders: Active Orders 24 hr Category Date Time Status Peripheral IV Care [RC] . DIRECTED Care 08/29/20 19:55 Active Sodium Chloride 0.9% [Saline Flush] Med 08/29/20 19:54 Active 10 ml FLUSH ASDIRECTED PRN Peripheral IV Insertion Adult [OM.PC] Routine Oth 08/29/20 19:54 Ordered Medication Orders Sodium Chloride (Sodium Chloride 0.9% 10 Ml Syringe) 10 ml FLUSH ASDIRECTED PRN PRN Reason: Keep Vein Open Labs: Laboratory Tests 08/29/20 08/29/20 08/29/20 Range/Units 19:50 19:50 19:50 WBC 9.7 (4.0-10.2) K/uL RBC 3.75 L (3.77-5.09) M/uL Hgb 12.1 D (11.7-15.5) g/dL Hct 35.6 (34.0-46.0) % MCV 94.9 (84.0-98.0) fL MCH 32.3 (28.2-33.3) pg MCHC 34.0 (31.7-36.0) g/dL RDW 13.2 (11.2-14.1) % Plt Count 244 (150-350) K/uL Neut % (Auto) 59.8 (45.0-80.0) % Lymph % (Auto) 32.3 (10.0-50.0) % [place] % (Auto) 5.4 (2.0-14.0) % Eos % (Auto) 1.8 (0.0-5.0) % Baso % (Auto) 0.7 (0.0-2.0) % Neut # (Auto) 5.78 (1.40-7.00) K/uL Lymph # (Auto) 3.12 (0.50-3.50) K/uL [place] # (Auto) 0.52 (0.00-1.00) K/uL Eos # (Auto) 0.17 (0.00-0.50) K/uL Baso # (Auto) 0.07 (0.00-0.20) K/uL PT 9.9 (9.5-12.0) SEC INR 1.0 Sodium 140 (136-145) mmol/L Potassium 3.4 L (3.5-5.1) mmol/L Chloride 104 (98-107) mmol/L Carbon Dioxide 25.2 (21.0-32.0) mmol/L BUN 16 (7-18) mg/dL Creatinine 0.81 (0.51-1.17) mg/dL Est Cr Clr Drug Dosing 57.69 mL/min Estimated GFR (MDRD) > 60 mL/min Glucose 136 H (70-99) mg/dL Calcium 8.9 (8.5-10.1) mg/dL Magnesium 2.0 (1.8-2.4) mg/dL Total Bilirubin 0.2 (0.2-1.0) mg/dL AST 22 (15-37) U/L ALT 46 (12-78) U/L Alkaline Phosphatase 95 (46-116) IU/L Total Protein 7.6 (6.4-8.2) g/dL Albumin 3.9 (3.4-5.0) g/dL Specimen Type Urine Color Urine Appearance Urine pH (5.0-9.0) Ur Specific [place] (1.005-1.030) Urine Protein (NEGATIVE) mg/dL Urine Glucose (UA) (NEGATIVE) mg/dL Urine Ketones (NEGATIVE) mg/dL Urine Occult Blood (NEGATIVE) Urine Nitrite (NEGATIVE) Urine Bilirubin (NEGATIVE) Urine Urobilinogen (0.2-1.0) E.U./dL Ur Leukocyte Esterase (NEGATIVE) U Hyaline Cast (Auto) Urine RBC /HPF Urine WBC /HPF Ur Epithelial Cells /LPF Urine Bacteria (NONE TO FEW) /HPF Granular Casts (Auto) Urine Mucus (NEGATIVE) /LPF Urine Yeast (NEGATIVE) /HPF 08/29/20 Range/Units 20:24 WBC (4.0-10.2) K/uL RBC (3.77-5.09) M/uL Hgb (11.7-15.5) g/dL Hct (34.0-46.0) % MCV (84.0-98.0) fL MCH (28.2-33.3) pg MCHC (31.7-36.0) g/dL RDW (11.2-14.1) % Plt Count (150-350) K/uL Neut % (Auto) (45.0-80.0) % Lymph % (Auto) (10.0-50.0) % [place] % (Auto) (2.0-14.0) % Eos % (Auto) (0.0-5.0) % Baso % (Auto) (0.0-2.0) % Neut # (Auto) (1.40-7.00) K/uL Lymph # (Auto) (0.50-3.50) K/uL [place] # (Auto) (0.00-1.00) K/uL Eos # (Auto) (0.00-0.50) K/uL Baso # (Auto) (0.00-0.20) K/uL PT (9.5-12.0) SEC INR Sodium (136-145) mmol/L Potassium (3.5-5.1) mmol/L Chloride (98-107) mmol/L Carbon Dioxide (21.0-32.0) mmol/L BUN (7-18) mg/dL Creatinine (0.51-1.17) mg/dL Est Cr Clr Drug Dosing mL/min Estimated GFR (MDRD) mL/min Glucose (70-99) mg/dL Calcium (8.5-10.1) mg/dL Magnesium (1.8-2.4) mg/dL Total Bilirubin (0.2-1.0) mg/dL AST (15-37) U/L ALT (12-78) U/L Alkaline Phosphatase (46-116) IU/L Total Protein (6.4-8.2) g/dL Albumin (3.4-5.0) g/dL Specimen Type Urincc Urine Color Analia Urine Appearance Cloudy Urine pH 5.5 (5.0-9.0) Ur Specific [place] >= 1.030 (1.005-1.030) Urine Protein 30 H (NEGATIVE) mg/dL Urine Glucose (UA) Negative (NEGATIVE) mg/dL Urine Ketones 15 H (NEGATIVE) mg/dL Urine Occult Blood Negative (NEGATIVE) Urine Nitrite Negative (NEGATIVE) Urine Bilirubin Small H (NEGATIVE) Urine Urobilinogen 1.0 (0.2-1.0) E.U./dL Ur Leukocyte Esterase Negative (NEGATIVE) U Hyaline Cast (Auto) Moderate Urine RBC 20-30 H /HPF Urine WBC 0-5 /HPF Ur Epithelial Cells Many H /LPF Urine Bacteria Moderate H (NONE TO FEW) /HPF Granular Casts (Auto) Few Urine Mucus Few H (NEGATIVE) /LPF Urine Yeast Moderate H (NEGATIVE) /HPF Meds: Medications Generic Name Dose Route Start Last Admin Trade Name Freq PRN Reason Stop Dose Admin Sodium Chloride 10 ml 08/29/20 19:54 Sodium Chloride 0.9% 10 Ml Syringe FLUSH ASDIRECTED PRN Keep Vein Open Departure - Departure Time of Disposition: 20:50 Disposition: Home, Self-Care 01 Clinical Impression: Rectal bleeding - Discharge Information Instructions: Gastrointestinal Bleeding, [id number] Referrals: Quentin Gunter PA [Primary Care Provider] - Forms: ED Department Discharge Additional Instructions: Follow-up with your PCP to schedule a repeat colonoscopy. You did have evidence of some hemorrhoids and diverticulosis on your colonoscopy a year ago which are likely to blame for this. I would start a stool softener (miralax) as this can contribute to rectal bleeding. Also, increase your intake of water as your labs indicate you are de hydrated. If you have worsening bleeding this weekend, return to ER and we will arrange transfer to [place]. You could also go straight there, as we do not have GI services at this facility on the weekend/on an emergent basis. Sepsis Event Note (ED) - Evaluation Sepsis Screening Result: No Definite Risk - Focused Exam Vital Signs: Vital Signs Temp Pulse Resp BP Pulse Ox 08/29/20 19:27 36.6 C 102 H 12 138/78 100 - My Orders Last 24 Hours: My Active Orders 08/29/20 19:54 Sodium Chloride 0.9% [Saline Flush] 10 ml FLUSH ASDIRECTED PRN Peripheral IV Insertion Adult [OM.PC] Routine 08/29/20 19:55 Peripheral IV Care [RC] . DIRECTED - Assessment/Plan Last 24 Hours: My Active Orders 08/29/20 19:54 Sodium Chloride 0.9% [Saline Flush] 10 ml FLUSH ASDIRECTED PRN Peripheral IV Insertion Adult [OM.PC] Routine 08/29/20 19:55 Peripheral IV Care [RC] . DIRECTED Plan: Pt. states that she is not able to remain in the hospital at this time due to family constraints. She refused emergent transfer to [place] for colonoscopy. She was advised to return if she has worsening bleeding, and at minimum was advised to set up colonoscopy on Monday. She will also return if she is lightheaded or short of breath. She was advised to start miralax and increase her intake of water. All questions were answered.
== END 2020-08-29 21:00 | disposition home or self-care (01) ==
LOC: LL.ED 19:24
DX: K62.5 Hemorrhage of anus and rectum (principal); I10 Essential (primary) hypertension; E11.9 Type 2 diabetes mellitus without complications; E66.9 Obesity, unspecified; Z79.899 Other long term (current) drug therapy; Z68.34 Body mass index [BMI] 34.0-34.9, adult; Z72.0 Tobacco use
CPT/HCPCS: 36415; 80053; 81001; 83735; 85025; 85610; 99283; 99284

== ENCOUNTER 2023-03-12 13:19 | Emergency (ER) | payer BC ==
[2023-03-12] MEDS ORDERED: Take Home: Amoxicillin/Clavulanate K 875-125 MG Tab, 6 Tab Pack PO ONE (14:02)
[2023-03-12] MEDS ORDERED: Bupivacaine 0.5% 10 ML SDV INJECT ONE (14:06)
[2023-03-12 14:28] VITALS: BP 142/85; PULSE 65
== END 2023-03-12 14:36 | disposition home or self-care (01) ==
LOC: LL.ED 13:19
DX: K04.7 Periapical abscess without sinus (principal); I10 Essential (primary) hypertension; K21.9 Gastro-esophageal reflux disease without esophagitis; E11.9 Type 2 diabetes mellitus without complications; E66.9 Obesity, unspecified; Z87.891 Personal history of nicotine dependence; Z79.899 Other long term (current) drug therapy; Z68.31 Body mass index [BMI] 31.0-31.9, adult
CPT/HCPCS: 64400; 99282; A9270-GY; J3490